=== PATIENT | female | born 1945 | race Caucasian/White ===

== ENCOUNTER 2021-05-24 17:52 | Inpatient (IN) | payer OTHER ==
--- NOTE | 2021-05-24 19:11 | RAD REPORT ---
EXAM DESCRIPTION: CT - Head C Spine Mpr Wo Con - 05/24/2021 6:52 pm CLINICAL HISTORY: Head and neck injury status post fall. Head and neck pain COMPARISON: December 2020 MRI TECHNIQUE: Computed axial tomography of the head and cervical spine was obtained. Sagittal and coronal reconstruction was performed. All CT scans are performed using dose optimization technique as appropriate and may include automated exposure control or mA/KV adjustment according to patient size. FINDINGS: An intracranial bleed is not seen. The ventricles are normal in caliber. An extra-axial fl uid collection is not noted. Mild to moderate low-density areas within periventricular, deep and subcortical white matter likely i schemic changes secondary to small vessel disease Chronic opacification right mastoids may indicate mastoiditis A cervical fracture is not visualized. No dislocation is noted. Spondylosis involves the cervical spi ne IMPRESSION: No acute intracranial abnormality is seen. A cervical fracture is not visualized. If the patient continues to have symptoms to suggest intracra nial /spinal cord pathology then MRI would be recommended
--- NOTE | 2021-05-24 19:15 | RAD REPORT ---
EXAM DESCRIPTION: Maribeth Single View05/24/2021 6:44 pm CLINICAL HISTORY: Chest pain COMPARISON: 2019 FINDINGS: The lungs appear clear of acute infiltrate. The heart is normal size IMPRESSION: No acute abnormalities displayed
[2021-05-24 19:16] LABS: Absolute Lymphocytes (CBC) 1.7 K/uL (0.7-4.9); Basophils % 0.6 % (0-1.3); Hematocrit 34.4 % (36.0-45.0); Lymphocytes % 10.9 % (15.3-44.8); RBC Red Blood Cell Count 3.59 M/uL (3.86-4.86)
[2021-05-24 19:17] LABS: Protime INR 0.99
[2021-05-24 19:51] LABS: ALT/SGPT 16 U/L (12-78); Albumin 3.4 g/dL (3.4-5.0); Alkaline Phosphatase 59 U/L (45-117); BUN Blood Urea Nitrogen 16 mg/dL (7-18); Bicarbonate 24 mmol/L (21-32); Bilirubin Direct < 0.1 mg/dL (0-0.2); Bilirubin Total 0.6 mg/dL (0.2-1.0); Glucose Level 144 mg/dL (74-106); NT PRO-BNP 1386 pg/mL (<450); Protein, Total 7.5 g/dL (6.4-8.2); Sodium Level 135 mmol/L (136-145); Troponin (Emerg Dept Use Only) < 0.02 ng/mL (0.0-0.045)
[2021-05-24 19:52] LABS: AST/SGOT 24 U/L (15-37); Magnesium 1.7 mg/dL (1.8-2.4); Potassium 4.5 mmol/L (3.5-5.1)
[2021-05-24 20:21] LABS: Urine Blood 3+ (Negative); Urine Glucose Negative (Negative); Urine Protein 1+ (Negative); Urine pH 5.5 (5.0-7.0)
[2021-05-24] MEDS ORDERED: NA CHLORIDE 0.9% 500 ML ONE (20:32)
--- NOTE | 2021-05-24 20:54 | ER ---
Nurse's Notes [facility] Name: Barbara Long Age: 75 yrs Sex: Female : 1945 Arrival Date: 05/24/2021 Time: 17:53 Bed 7 Private MD: Diagnosis: UTI/ Urinary tract infection, site not specified;Syncope Near;Weakness Presentation: 05/24 18:06 Chief complaint: Patient's son or daughter states: Pt fell outside about an hour ago vg1 and neighbors helped pt back into home. Son stated neighbors stated Pt stated was confused as to why was on the ground. Pt states "I remember, I was picking up sticks, felt dizzy and blacked out and fell" Pt confirms of hitting head but unsure of duration of LOC. Pt son states pt stated fell last night in living room around 2200 and was able to get up off floor today around 1000. Pt denies headache, blurred vision, dizziness or nausea at this time. FSBG 143. Coronavirus screen: Vaccine status: Patient reports receiving the 2nd dose of the covid vaccine. Ebola Screen: Patient negative for fever greater than or equal to 101.5 degrees Fahrenheit, and additional compatible Ebola Virus Disease symptoms. Initial Sepsis Screen: Does the patient meet any 2 criteria? No. Patient's initial sepsis screen is negative. Does the patient have a suspected source of infection? No. Patient's initial sepsis screen is negative. Risk Assessment: Do you want to hurt yourself or someone else? Patient reports no desire to harm self or others. Onset of symptoms was May 24, 2021. 18:06 Method Of Arrival: Wheelchair vg1 18:06 Acuity: SONI 3 vg1 Triage Assessment: 18:10 General: Appears in no apparent distress. comfortable, Behavior is calm, cooperative. vg1 Pain: Denies pain. Neuro: Level of Consciousness is awake, alert, obeys commands, Oriented to person, place, time, situation. Historical: - Allergies: 18:10 No Known Allergies; vg1 - Home Meds: 18:10 tamoxifen oral [Active]; Metformin Oral [Active]; nadolol oral [Active]; Vasotec Oral vg1 [Active]; amlodipine oral [Active]; pantoprazole oral [Active]; atorvastatin oral [Active]; - PMHx: 18:10 Hypertensive disorder; Diabetes mellitus; vg1 - Immunization history:: Adult Immunizations up to date, Client reports receiving the 2nd dose of the Covid vaccine. - Social history:: Smoking status: Patient reports the use of cigarette tobacco products, denies chronic smoking, but will smoke occasionally. Screenin:33 Abuse screen: Denies threats or abuse. Denies injuries from another. Nutritional ld1 screening: No deficits noted. Tuberculosis screening: No symptoms or risk factors identified. Fall Risk Fall in past 12 months (25 points). Gait- Weak (10 pts.). Mental Status- Oriented to own ability (0 pts). Total Pacheco Fall Scale indicates Low Risk Score (25-44 pts). Fall prevention measures have been instituted. Side Rails Up X 2 Placed close to Nursing Station Frequent Obs/Assesments occuring Family Present and informed to notify staff if they need to leave bedside. Assessment: 18:20 General: Appears in no apparent distress. comfortable, Behavior is calm, cooperative, ld1 appropriate for age, drowsy. Pain: Denies pain. Neuro: Level of Consciousness is awake, alert, obeys commands, Oriented to person, place, time, situation. Cardiovascular: Capillary refill < 3 seconds Patient's skin is warm and dry. Rhythm is regular. Respiratory: Airway is patent Respiratory effort is even, unlabored, Respiratory pattern is regular, symmetrical. 18:20 Neuro: Reports dizziness, since X 3 days. GI: Abdomen is flat, non-distended. : No ld1 signs and/or symptoms were reported regarding the genitourinary system. EENT: No signs and/or symptoms were reported regarding the EENT system. Derm: No signs and/or symptoms reported regarding the dermatologic system. Musculoskeletal: No signs and/or symptoms reported regarding the musculoskeletal system. Vital Signs: 18:06 BP 120 / 58; Pulse 68; Resp 16; Temp 97.2; Pulse Ox 100% ; Weight 45.36 kg; Height 5 vg1 ft. 0 in. (152.40 cm); Pain 0/10; 18:29 BP 129 / 57 LA Supine (auto/); Pulse 63 LA; ld1 18:31 BP 128 / 76 LA Sitting (auto/); Pulse 68 LA; ld1 18:33 BP 121 / 66 LA Standing (auto/); Pulse 70 LA; ld1 18:33 BP 121 / 66; Pulse 66; Resp 18; Pulse Ox 100% on R/A; Pain 0/10; ld1 18:06 Body Mass Index 19.53 (45.36 kg, 152.40 cm) vg1 ED Course: 17:53 Patient arrived in ED. rg4 18:10 Triage completed. vg1 18:10 Arm band placed on. vg1 18:16 Rashawn Dinh PA is PHCP. cp 18:16 Chato Roldan MD is Attending Physician. cp 18:33 Patient has correct armband on for positive identification. Placed in gown. Bed in low ld1 position. Call light in reach. Side rails up X2. cafeteria monitor on. Pulse ox on. NIBP on. Door closed. Noise minimized. Warm blanket given. 18:33 No provider procedures requiring assistance completed. Inserted saline lock: 20 gauge ld1 in right forearm, using aseptic technique. Blood collected. 18:44 XRAY Chest (1 view) In Process Unspecified. EDMS 18:53 CT Head C Spine In Process Unspecified. EDMS 20:37 LAB Add On Sent. wg 20:52 Nilo Roque DO is Hospitalizing Provider. cp 20:53 Blood Culture Adult (2) Sent. wg 21:34 Radha Valenzuela, RN is Primary Nurse. ea 05/25 05:30 Patient maintains SpO2 saturation greater than 95% on room air. wg 05:42 Procalcitonin Sent. wg 05:42 Lactate Sent. wg 05:43 Urine Culture Sent. wg 05:43 COVID-19 : Document "Date of Symptom Onset" if Symptomatic. Sent. wg Administered Medications: 05/24 20:09 Drug: NS 0.9% 500 ml Route: IV; Rate: bolus; Infused Over: 30 mins; Site: right wrist; ea 20:53 Drug: Rocephin (cefTRIAXone) 1 grams Route: IV; Rate: calculated rate; Infused Over: 5 wg mins; Site: right antecubital; 22:00 Follow up: IV Status: Completed infusion ea 21:30 Drug: Magnesium Sulfate 1 grams Route: IVPB; Infused Over: 1 hrs; Site: right ea antecubital; Outcome: 20:53 Decision to Hospitalize by Provider. cp 05/25 11:44 Admitted to Med/surg accompanied by tech, family with patient, via wheelchair, room [place] [id number], with chart, Report called to ROSA MARIA Sheehan Condition: stable Discharge instructions given to patient, Instructed on the need for admit, Demonstrated understanding of instructions. 11:45 Patient left the ED. jl7 Signatures: Dispatcher [employer] EDMS Rashawn Dinh PA PA cp Garcia, Rubi rg4 Gi Pelletier RN RN jl7 Radha Valenzuela RN RN ea Garcia, Victoria, RN RN vg1 Prabha Stoddard RN RN ld1 Mc Tate RN wg Corrections: (The following items were deleted from the chart) 05/24 18:14 18:06 Chief complaint: Patient's son or daughter states: Pt fell outside about an hour vg1 ago and neighbors helped pt back into home. Son stated neighbors stated Pt stated was confused as to why was on the ground. Pt states "I remember, I was picking up sticks, felt dizzy and blacked out and fell" Pt confirms of hitting head but unsure of duration of LOC. Pt son states pt stated fell last night in living room around 2200 and was able to get up off floor today around 1000. vg1
--- NOTE | 2021-05-24 20:54 | EDPHYS ---
Physician Documentation [facility] Name: Barbara Long Age: 75 yrs Sex: Female : 1945 Arrival Date: 05/24/2021 Time: 17:53 Bed 7 Private MD: ED Physician Chato Roldan HPI: 05/24 18:35 This 75 yrs old Female presents to ER via Wheelchair with complaints of Fall cp Injury, Dizziness, Confusion. 18:35 Details of fall: The patient fell from an upright position, while walking. Onset: The cp symptoms/episode began/occurred today. Associated injuries: The patient sustained no obvious injury. 18:35 Patient reports she bent over and lost consciousness. Patient reports general weakness. cp Historical: - Allergies: 18:10 No Known Allergies; vg1 - Home Meds: 18:10 tamoxifen oral [Active]; Metformin Oral [Active]; nadolol oral [Active]; Vasotec Oral vg1 [Active]; amlodipine oral [Active]; pantoprazole oral [Active]; atorvastatin oral [Active]; - PMHx: 18:10 Hypertensive disorder; Diabetes mellitus; vg1 - Immunization history:: Adult Immunizations up to date, Client reports receiving the 2nd dose of the Covid vaccine. - Social history:: Smoking status: Patient reports the use of cigarette tobacco products, denies chronic smoking, but will smoke occasionally. ROS: 18:40 Constitutional: Negative for body aches, chills, fever, poor PO intake. cp 18:40 Cardiovascular: Negative for chest pain, edema, palpitations. cp 18:40 Respiratory: Negative for cough, shortness of breath, wheezing. 18:40 Neuro: Positive for dizziness, syncope, weakness. Exam: 18:45 Constitutional: The patient appears in no acute distress, alert, awake, cp non-diaphoretic, non-toxic, well developed, well nourished. 18:45 Head/Face: Normocephalic, atraumatic. cp 18:45 Eyes: Periorbital structures: appear normal, Conjunctiva: normal, no exudate, no injection, Sclera: no appreciated abnormality, Lids and lashes: appear normal, bilaterally. 18:45 ENT: External ear(s): are unremarkable, Nose: is normal, Mouth: Lips: dry, Oral mucosa: moist, Posterior pharynx: Airway: no evidence of obstruction, patent. 18:45 Neck: ROM/movement: is normal, is supple, no meningismus, no nuchal rigidity. 18:45 Chest/axilla: Inspection: normal, Palpation: is normal, no crepitus, no tenderness. 18:45 Cardiovascular: Rate: normal, Rhythm: regular, Edema: is not appreciated, JVD: is not appreciated. 18:45 Respiratory: the patient does not display signs of respiratory distress, Respirations: normal, no use of accessory muscles, no retractions, labored breathing, is not present, Breath sounds: are clear throughout, no decreased breath sounds, no stridor, no wheezing. 18:45 Abdomen/GI: Inspection: abdomen appears normal, Palpation: abdomen is soft and non-tender, in all quadrants. 18:45 Skin: cellulitis, is not appreciated, no rash present. 18:45 Neuro: Orientation: to person, place \\T\\ time. Mentation: able to follow commands, slow to respond, Cerebellar function: is grossly normal, Motor: moves all fours, strength is normal, Sensation: is normal. 20:45 ECG was reviewed by the Attending Physician. Vital Signs: 18:06 BP 120 / 58; Pulse 68; Resp 16; Temp 97.2; Pulse Ox 100% ; Weight 45.36 kg; Height 5 vg1 ft. 0 in. (152.40 cm); Pain 0/10; 18:29 BP 129 / 57 LA Supine (auto/); Pulse 63 LA; ld1 18:31 BP 128 / 76 LA Sitting (auto/); Pulse 68 LA; ld1 18:33 BP 121 / 66 LA Standing (auto/); Pulse 70 LA; ld1 18:33 BP 121 / 66; Pulse 66; Resp 18; Pulse Ox 100% on R/A; Pain 0/10; ld1 18:06 Body Mass Index 19.53 (45.36 kg, 152.40 cm) vg1 MDM: 18:27 Patient medically screened. cp 20:45 Data reviewed: vital signs, nurses notes, lab test result(s), EKG, radiologic studies, cp CT scan, plain films. 20:45 Test interpretation: by ED physician or midlevel provider: ECG, plain radiologic cp studies. Counseling: I had a detailed discussion with the patient and/or guardian regarding: the historical points, exam findings, and any diagnostic results supporting the discharge/admit diagnosis, lab results, radiology results, the need for further work-up and treatment in the hospital. 20:55 Physician consultation: Bassam Wall was contacted at 20:50, regarding admission, to the telemetry unit. patient's condition. 05/24 18:17 Order name: Glucose, Ancillary Testing; Complete Time: 18:17 EDMD 05/24 18:30 Order name: Basic Metabolic Panel; Complete Time: 19:56 cp 05/24 20:34 Interpretation: Normal except: NA 135; GLUC 144; GFR 62. 05/24 18:30 Order name: CBC with Diff; Complete Time: 19:46 05/24 19:46 Interpretation: Normal except: WBC 15.70; RBC 3.59; HGB 11.7; HCT 34.4; MABEL% 77.6; LYM% cp 10.9; NEUT A 12.2; MNA 1.6. 05/24 18:30 Order name: LFT's; Complete Time: 19:56 05/24 18:30 Order name: Magnesium; Complete Time: 19:56 05/24 18:30 Order name: NT PRO-BNP; Complete Time: 19:56 05/24 18:30 Order name: PT-INR; Complete Time: 19:46 05/24 18:30 Order name: Troponin (emerg Dept Use Only); Complete Time: 19:56 05/24 18:30 Order name: Urine Microscopic Only; Complete Time: 21:16 05/24 21:16 Interpretation: Normal except: UWBC 5-10; URBC 5-10; UBACT LOADED; SQEPI 5-10. 05/24 19:49 Order name: Procalcitonin 05/24 19:49 Order name: Lactate 05/24 19:49 Order name: Blood Culture Adult (2) 05/24 19:49 Order name: Procalcitonin [facility] 05/24 19:49 Order name: Lactate; Complete Time: 21:16 EDMD 05/24 19:49 Order name: Blood Culture [facility] 05/24 20:21 Order name: Urine Dipstick-Ancillary; Complete Time: 20:33 EDMD 05/24 20:33 Interpretation: Normal except: UKET Trace; UBLD 3+; UPROT 1+; U NIT Positive; UESTR cp Trace. 05/24 20:35 Order name: CK cp 05/24 20:35 Order name: LAB Add On cp 05/24 21:13 Order name: COVID-19 : Document "Date of Symptom Onset" if Symptomatic. la1 05/24 21:13 Order name: Urine Culture EDMS 05/25 02:09 Order name: Troponin I EDMS 05/25 02:27 Order name: Procalcitonin EDMS 05/25 03:43 Order name: SARS-COV-2 RT PCR EDMS 05/25 06:48 Order name: CBC with Automated Diff EDMS 05/25 07:09 Order name: Troponin I EDMS 05/25 07:12 Order name: Comprehensive Metabolic Panel EDMS 05/25 07:12 Order name: Creatine Phosphokinase EDMS 05/25 07:12 Order name: Lipid Profile EDMS 05/25 07:12 Order name: T4 Free EDMS 05/25 07:12 Order name: Thyroid Stimulating Hormone EDMS 05/24 18:30 Order name: Orthostatics; Complete Time: 18:41 cp 05/24 18:30 Order name: XRAY Chest (1 view); Complete Time: 19:46 cp 05/24 18:30 Order name: EKG; Complete Time: 18:31 cp 05/24 18:30 Order name: Cardiac monitoring; Complete Time: 18:40 cp 05/24 18:30 Order name: EKG - Nurse/Tech; Complete Time: 21:35 cp 05/24 18:30 Order name: IV Saline Lock; Complete Time: 18:40 cp 05/24 18:30 Order name: Labs collected and sent; Complete Time: 18:40 cp 05/24 18:30 Order name: O2 Per Protocol; Complete Time: 18:40 cp 05/24 18:30 Order name: O2 Sat Monitoring; Complete Time: 18:41 cp 05/24 18:30 Order name: Urine Dipstick-Ancillary (obtain specimen); Complete Time: 18:40 cp 05/24 18:30 Order name: CT Head C Spine; Complete Time: 19:46 cp 05/25 07:16 Order name: RAD EDMS 05/25 07:25 Order name: US EDMS EC:45 Rate is 67 beats/min. Rhythm is regular. MO interval is normal. QRS interval is normal. cp QT interval is normal. Interpreted by me. Reviewed by me. Administered Medications: 20:09 Drug: NS 0.9% 500 ml Route: IV; Rate: bolus; Infused Over: 30 mins; Site: right wrist; ea 20:53 Drug: Rocephin (cefTRIAXone) 1 grams Route: IV; Rate: calculated rate; Infused Over: 5 wg mins; Site: right antecubital; 22:00 Follow up: IV Status: Completed infusion ea 21:30 Drug: Magnesium Sulfate 1 grams Route: IVPB; Infused Over: 1 hrs; Site: right ea antecubital; Disposition: 21:00 Chart complete. cp 05/25 12:11 Co-signature as Attending Physician, Chato Roldan MD I agree with the assessment and rn plan of care. Attestation: The patient's history, exam findings, diagnostics, and a summary of any interventions or procedures was reviewed in detail with Rashawn REYES. Disposition Summary: 05/24/21 20:53 Hospitalization Ordered Hospitalization Status: Inpatient Admission cp Provider: Nilo Roque cp Condition: Stable cp Problem: new cp Symptoms: have improved cp Bed/Room Type: Standard cp Location: Telemetry/MedSurg (Inpatient)(05/25/21 11:16) eb Room Assignment: 424(05/25/21 11:16) eb Diagnosis - UTI/ Urinary tract infection, site not specified cp - Syncope Near cp - Weakness cp Forms: - Medication Reconciliation Form cp - SBAR form cp Signatures: Dispatcher [employer] EDMS Chato Roldan MD MD rn Attema, Lee, FRAME OPERATOR-C FRAME OPERATOR-[facility] Stefany Ba RN RN tl1 Rashawn Dinh PA PA cp Radha Valenzuela RN RN Katiuska Ronquillo Victoria RN RN vg1 Mc Tate RN wg Corrections: (The following items were deleted from the chart) 03:56 05/24 20:53 Telemetry/MedSurg (Inpatient) cp tl1 05/25 03:56 05/24 20:53 cp tl1 05/25 05:43 05/24 19:49 Green ordered. cp wg 05/25 11:16 03:56 [facility] ER HOLD tl1 eb 11:16 03:56 ERHOLD- tl1 eb
[2021-05-24] MEDS ORDERED: CEFTRIAXONE 1000 MG/VIAL ONE (21:04)
[2021-05-24 21:13] LABS: Urine Bacteria LOADED /HPF (<20); Urine Mucus 1+ /HPF (NONE SEEN)
--- NOTE | 2021-05-24 21:17 | P.HP ---
Certification for Inpatient Patient admitted to: Inpatient With expected LOS: >2 Midnights Patient will require the following post-hospital care: None Practitioner: I am a practitioner with admitting privileges, knowledge of patient current condition, hospital course, and medical plan of care. Services: Services provided to patient in accordance with Admission requirements found in Title 42 Section 412.3 of the Code of Federal Regulations Patient History Date of Service: 05/24/21 Primary Care Provider: Abiel Sorto Dr. Reason for admission: Syncope, UTI History of Present Illness: 75-year-old female with history of diabetes most type II, hypertension, hyperlipidemia, breast cancer presents emergency department for s yncope, weakness. Patient reports that she fell in her home last night around 2200 for unknown reason, cannot remember event surrounding fall but remained on the floor until 10:00 this morning. Patient was then working outside picking up sticks this evening when she had some dizziness lost her balance and passed out. Patient family reports that neighbors found her and helped her up but when she awoke she was confused. Patient was brought into the emergency department for evaluation. Patient was evaluated labs are significant for white blood cell count 15.7 hemoglobin 9.7 medical 34.4 sodium 135 GFR 62 glucose 144 BNP 1386 urinalysis nitrate +3+ blood trace leukoesterase microscopic analysis pending. Orthostatic vital signs negative, ED prior wishes to admit for further evaluation and management of syncope, UTI, weakness. - Past Medical/Surgical History Diabetic: Yes -: Diabetes type 2 -: Hypertension -: Hyperlipidemia -: Breast cancer -: Hysterectomy Psychosocial/ Personal History: Patient lives at home, alone - Family History Mother -: Cancer Sister -: Cancer - Social History Smoking Status: Current every day smoker Counseled patient to stop smoking for: less than 10 minutes Smoking therapy provided: No (Patient declined) Alcohol use: No CD- Drugs: No Caffeine use: No Place of Residence: Home Review of Systems 10-point ROS is otherwise unremarkable General: Chills, Weakness, Malaise Cardiovascular: Other (Syncope) Physical Examination - Physical Exam General: Alert, In no apparent distress, Oriented x2 HEENT: Atraumatic, PERRLA, Mucous membr. moist/pink, EOMI, Sclerae nonicteric Neck: Supple, 2+ carotid pulse no bruit, No LAD, Without JVD or thyroid abnormality Respiratory: Clear to auscultation bilaterally, Normal air movement Cardiovascular: Regular rate/rhythm, Normal S1 S2 Gastrointestinal: Normal bowel sounds, No tenderness Musculoskeletal: No tenderness Integumentary: No rashes Neurological: Normal speech, Normal strength at 5/5 x4 extr, Normal tone, Normal affect - Studies Laboratory Data (last 24 hrs) 05/24/21 18:30: PT 11.4, INR 0.99 05/24/21 18:30: WBC 15.70 H, Hgb 11.7 L, Hct 34.4 L, Plt Count 229 05/24/21 18:30: Sodium 135 L, Potassium 4.5, BUN 16, Creatinine 0.89, Glucose 144 H, Magnesium 1.7 L, Total Bilirubin 0.6, AST 24, ALT 16, Alkaline Phosphatase 59 Assessment and Plan - Plan Assessment: Dizziness, weakness, syncope, leukocytosis likely secondary to urinary tract infection Diabetes mellitus type 2 Hypertension Hyperlipidemia Breast cancer Plan: Dizziness, weakness, syncope, leukocytosis likely secondary to urinary tract infection: Blood and urine cultures obtained continue with Rocephin at this time. Monitor on telemetry obtain echocardiogram/carotid ultrasound. Physical therapy consulted. Continue with IV fluids overnight anticipate clinical improvement on course next 24 to 48 hours. Diabetes mellitus type 2: A [facility] Accu-Chek, sliding scale insulin Hypertension: Continue home medications Hyperlipidemia:Continue home medications Breast cancer:Continue home medications DVT PPX: Lovenox Code status: Full code Discharge Plan: Home Plan to discharge in: 48 Hours - Advance Directives Does patient have a Living Will: No Does patient have a Durable POA for Healthcare: No - Code Status/Comfort Care Code Status Assessed: Yes (Full code) Critical Care: No Time Spent Managing Pts Care (In Minutes): 55
[2021-05-24] MEDS ORDERED: MAGNESIUM SULFATE 1 gm IVPB 1 GM/100 ML BAG IV ONE (21:50)
[2021-05-25] MEDS: NA CHLORIDE 0.9% 1,000 ML IV SCH ×2 (00:19→10:19)
[2021-05-25] MEDS ORDERED: ONDANSETRON 4 MG/2 ML VIAL IV PRN (00:19)
[2021-05-25 04:44] VITALS: BMI 19.5
[2021-05-25] MEDS ORDERED: NA CHLORIDE 0.9% 1,000 ML ONE ×3 (05:14→22:43)
[2021-05-25 06:42] LABS: Absolute Lymphocytes (CBC) 1.6 K/uL (0.7-4.9); Basophils % 0.4 % (0-1.3); Hematocrit 32.5 % (36.0-45.0); Lymphocytes % 18.2 % (15.3-44.8); MPV 8.5 fL (7.6-11.3); RBC Red Blood Cell Count 3.38 M/uL (3.86-4.86)
--- NOTE | 2021-05-25 06:47 | P.PN ---
Subjective Date of Service: 05/25/21 Primary Care Provider: Abiel Sorto Dr. Chief Complaint: Syncope, UTI Subjective: Improving Physical Examination - Vital Signs Blood Pressure: 122/67 Pulse: 60 Respirations: 17 Pulse Ox (%): 99 - Studies Laboratory Data (last 24 hrs) 05/24/21 18:30: PT 11.4, INR 0.99 05/24/21 18:30: WBC 15.70 H, Hgb 11.7 L, Hct 34.4 L, Plt Count 229 05/24/21 18:30: Sodium 135 L, Potassium 4.5, BUN 16, Creatinine 0.89, Glucose 144 H, Magnesium 1.7 L, Total Bilirubin 0.6, AST 24, ALT 16, Alkaline Phosphatase 59 Assessment & Plan Discharge Plan: Home Physician Review Additional Text: COVID: Negative CT head: COMPARISON: December 2020 MRI TECHNIQUE: Computed axial tomography of the head and cervical spine was obtained. Sagittal and coronal reconstruction was performed. All CT scans are performed using dose optimization technique as appropriate and may include automated exposure control or mA/KV adjustment according to patient size. FINDINGS: An intracranial bleed is not seen. The ventricles are normal in caliber. An extra-axial fluid collection is not noted. Mild to moderate low-density areas within periventricular, deep and subcortical white matter likely ischemic changes secondary to small vessel disease Chronic opacification right mastoids may indicate mastoiditis A cervical fracture is not visualized. No dislocation is noted. Spondylosis involves the cervical spine IMPRESSION: No acute intracranial abnormality is seen. A cervical fracture is not visualized. CXR: COMPARISON: 2019 FINDINGS: The lungs appear clear of acute infiltrate. The heart is normal size IMPRESSION: No acute abnormalities displayed ECHO: MEASUREMENTS (cm) DIASTOLIC (NORMALS) SYSTOLIC (NORMALS) IVSd 0.9 (0.6-1.2) LA Diam 2.5 (1.9-4.0) LVEF 64% LVIDd 3.8 (3.5-5.7) LVIDs 2.5 (2.0-3.5) %FS 34% LVPWd 1.0 (0.6-1.2) Ao Diam 2.2 (2.0-3.7) 2 DIMENSIONAL ASSESSMENT: RIGHT ATRIUM: NORMAL LEFT ATRIUM: NORMAL RIGHT VENTRICLE: NORMAL LEFT VENTRICLE: NORMAL TRICUSPID VALVE: NORMAL MITRAL VALVE: NORMAL PULMONIC VALVE: NORMAL AORTIC VALVE: NORMAL PERICARDIAL EFFUSION: NONE AORTIC ROOT: NORMAL LEFT VENTRICULAR WALL MOTION: NORMAL DOPPLER/COLOR FLOW: NORMAL COMMENTS: NORMAL 2D ECHOCARDIOGRAM WITH DOPPLER. NO WALL MOTION ABNORMALITY. NO EFFUSION. Carotid doppler: COMPARISON: Head C Spine Mpr Wo Con dated 05/24/2021 TECHNIQUE: Real-time sonographic evaluation of both carotid systems was performed. Doppler interrogation was performed with waveform tracing bilaterally. FINDINGS: Normal high resistance waveforms are noted in both external carotid arteries. The common carotid arteries and internal carotid arteries show normal low resistance waveforms Soft and hard plaque noted at the proximal ICAs. Peak systolic and end diastolic velocity values and the ICA/CCA ratios are in the non-hemodynamically significant range. Mild stenosis of the proximal left external carotid artery. Antegrade flow seen in both vertebral arteries. IMPRESSION: Atherosclerotic disease without hemodynamically significant stenosis involving the common or internal carotid arteries. Mild left ECA stenosis. Physical exam: General: Alert, In no apparent distress, Oriented x2 HEENT: Atraumatic, PERRLA, Mucous membr. moist/pink, EOMI, Sclerae nonicteric Neck: Supple, 2+ carotid pulse no bruit, No LAD, Without JVD or thyroid abnormality Respiratory: Clear to auscultation bilaterally, Normal air movement Cardiovascular: Regular rate/rhythm, Normal S1 S2 Gastrointestinal: Normal bowel sounds, No tenderness Musculoskeletal: No tenderness Integumentary: No rashes Neurological: Normal speech, Normal strength at 5/5 x4 extr, Normal tone, Normal affect Impression: Dizziness, weakness, syncope, leukocytosis likely secondary to urinary tract infection Diabetes mellitus type 2 Hypertension Hyperlipidemia Breast cancer Plan: Dizziness, weakness, syncope, leukocytosis likely secondary to urinary tract infection: Continue IV antibiotic therapy. Blood and urine cultures obtained. Anticipate likely discharge in the next 48 hours. Await physical therapy assess ambulation. Diabetes mellitus type 2: Continue Accu-Cheks and sliding scale. Hold Metformin. Hold Januvia. Hypertension: Continue lisinopril. Hold Norvasc/JALEEL inhibitor and nadolol Hyperlipidemia: Continue Lipitor Breast cancer: Continue tamoxifen DVT PPX: Lovenox Code status: Full code Discharge Plan: Home Time Spent Managing Pts Care (In Minutes): 55
[2021-05-25 07:08] LABS: Bilirubin Total 0.4 mg/dL (0.2-1.0); Potassium 3.9 mmol/L (3.5-5.1); Protein, Total 6.8 g/dL (6.4-8.2); Thyroid Stimulating Hormone 1.83 uIU/mL (0.360-3.740)
--- NOTE | 2021-05-25 07:15 | RAD REPORT ---
EXAM DESCRIPTION: RAD - Chest Single View - 05/25/2021 6:42 am CLINICAL HISTORY: R/O pneumonia COMPARISON: Chest Single View dated 05/24/2021; Chest Pa And Lat (2 Views) dated 07/31/2020; CHEST PA AND LAT 2 VIEW dated 08/04/2009; CHEST PA AND LAT 2 VIEW dated 01/26/2008 FINDINGS: Lines: None. Lungs: There is some increased prominence of some of the interstitial markings bilaterally. This is f airly diffuse. Pleural: No significant pleural effusions or pneumothorax. Cardiac: The heart size is within normal limits. Bones: No acute fractures. Other: Surgical clips overlying the left breast. IMPRESSION: Mild diffuse increased lung markings could reflect a mild infectious or inflammatory pro cess.
--- NOTE | 2021-05-25 07:25 | RAD REPORT ---
EXAM DESCRIPTION: US - CP - 05/25/2021 1:26 am CLINICAL HISTORY: syncope COMPARISON: Head C Spine Mpr Wo Con dated 05/24/2021 TECHNIQUE: Real-time sonographic evaluation of both carotid systems was performed. Doppler interroga tion was performed with waveform tracing bilaterally. FINDINGS: Normal high resistance waveforms are noted in both external carotid arteries. The common c arotid arteries and internal carotid arteries show normal low resistance waveforms. Soft and hard plaque noted at the proximal ICAs. Peak systolic and end diastolic velocity values and the ICA/CCA ratios are in the non-hemodynamically significant range. Mild stenosis of the proximal le ft external carotid artery. Antegrade flow seen in both vertebral arteries. IMPRESSION: Atherosclerotic disease without hemodynamically significant stenosis involving the commo n or internal carotid arteries. Mild left ECA stenosis.
[2021-05-25] MEDS ORDERED: KCL 20 MEQ/100 mL IVPB 20 MEQ/100 ML BAG IV SCH (08:00)
[2021-05-25] MEDS ORDERED: INFLUENZA VACCINE (for 6+ mo) 0.5 ML DOSE IMVAC ONE (08:00)
[2021-05-25] MEDS ORDERED: PNEUMOCOCCAL VACCINE 0.5 ML IMVAC ONE (08:00)
[2021-05-25] MEDS ORDERED: POTASSIUM CL SA 10 MEQ TAB PO ONE ×2 (08:46→09:50)
[2021-05-25] MEDS ORDERED: ENOXAPARIN 40 MG/0.4 ML SQ ONE (08:46)
[2021-05-25] MEDS: ENOXAPARIN 40 MG/0.4 ML SQ SCH (09:00)
--- NOTE | 2021-05-25 10:41 | EKG ---
Test Date: 2021-05-24 Test Time: 20:38:43 Physical Sciences Professor: MECHELLE MEASUREMENT RESULTS: Intervals: Rate: 68 AK: 122 QRSD: 76 QT: 436 QTc: 463 [place]: P: 61 AK: 122 QRS: 65 T: 60 INTERPRETIVE STATEMENTS: Normal sinus rhythm ST elevation, consider inferior injury or acute infarct ACUTE CT / STEMI Consider right ventricular involvement in acute inferior infarct Abnormal ECG Compared to ECG 01/26/2008 05:52:27 ST (T wave) deviation now present Myocardial infarct finding now present Myocardial infarct finding now present Sinus bradycardia no longer present Electronically Signed On 05-25-21 10:39:45 CDT by Hamilton Baum
--- NOTE | 2021-05-25 11:33 | ECHO ---
HEIGHT: 5 ft 0 in WEIGHT: 100 lb 0.027 oz DATE OF STUDY: 05/25/[address]: Bassam Wall NP 2-DIMENSIONAL: YES M.MODE: YES DOPPLER: YES COLOR FLOW: YES TDS: NO PORTABLE: NO DEFINITY: NO BUBBLE STUDY: NO DIAGNOSIS: SYNCOPE CARDIAC HISTORY: CATHERIZATION: NO SURGERY: NO PROSTHETIC VALVE: NO PACEMAKER: NO MEASUREMENTS (cm) DIASTOLIC (NORMALS) SYSTOLIC (NORMALS) IVSd 0.9 (0.6-1.2) LA Diam 2.5 (1.9-4.0) LVEF 64% LVIDd 3.8 (3.5-5.7) LVIDs 2.5 (2.0-3.5) %FS 34% LVPWd 1.0 (0.6-1.2) Ao Diam 2.2 (2.0-3.7) 2 DIMENSIONAL ASSESSMENT: RIGHT ATRIUM: NORMAL LEFT ATRIUM: NORMAL RIGHT VENTRICLE: NORMAL LEFT VENTRICLE: NORMAL TRICUSPID VALVE: NORMAL MITRAL VALVE: NORMAL PULMONIC VALVE: NORMAL AORTIC VALVE: NORMAL PERICARDIAL EFFUSION: NONE AORTIC ROOT: NORMAL LEFT VENTRICULAR WALL MOTION: NORMAL DOPPLER/COLOR FLOW: NORMAL COMMENTS: NORMAL 2D ECHOCARDIOGRAM WITH DOPPLER. NO WALL MOTION ABNORMALITY. NO EFFUSION. TECHNOLOGIST: Kellie ANAYA
[2021-05-25] MEDS: VITAMIN D 1000 UNIT TAB PO SCH (17:48)
[2021-05-25] MEDS: ENALAPRIL 10 MG TAB PO SCH (20:27)
[2021-05-25] MEDS: CEFTRIAXONE 1 GM/NS 50 ML 1 GM/50 ML BAG IV SCH (20:27)
[2021-05-25] MEDS: ATORVASTATIN 40 MG TAB PO SCH (20:28)
[2021-05-26 06:03] LABS: Absolute Lymphocytes (CBC) 1.9 K/uL (0.7-4.9); Basophils % 0.8 % (0-1.3); Hematocrit 31.3 % (36.0-45.0); Lymphocytes % 26.4 % (15.3-44.8); MPV 8.3 fL (7.6-11.3); RBC Red Blood Cell Count 3.28 M/uL (3.86-4.86)
--- NOTE | 2021-05-26 06:14 | P.PN ---
Subjective Date of Service: 05/26/21 Primary Care Provider: Abiel Sorto Dr. Chief Complaint: Syncope, UTI Subjective: Improving, Doing well Physical Examination - Vital Signs Temperature: 98.0 F Blood Pressure: 152/64 Pulse: 56 Respirations: 16 Pulse Ox (%): 99 Assessment & Plan Discharge Plan: Home Plan to discharge in: 24 Hours Physician Review Additional Text: COVID: Negative CT head: COMPARISON: December 2020 MRI TECHNIQUE: Computed axial tomography of the head and cervical spine was obtained. Sagittal and coronal reconstruction was performed. All CT scans are performed using dose optimization technique as appropriate and may include automated exposure control or mA/KV adjustment according to patient size. FINDINGS: An intracranial bleed is not seen. The ventricles are normal in caliber. An extra-axial fluid collection is not noted. Mild to moderate low-density areas within periventricular, deep and subcortical white matter likely ischemic changes secondary to small vessel disease Chronic opacification right mastoids may indicate mastoiditis A cervical fracture is not visualized. No dislocation is noted. Spondylosis involves the cervical spine IMPRESSION: No acute intracranial abnormality is seen. A cervical fracture is not visualized. CXR: COMPARISON: 2019 FINDINGS: The lungs appear clear of acute infiltrate. The heart is normal size IMPRESSION: No acute abnormalities displayed ECHO: MEASUREMENTS (cm) DIASTOLIC (NORMALS) SYSTOLIC (NORMALS) IVSd 0.9 (0.6-1.2) LA Diam 2.5 (1.9-4.0) LVEF 64% LVIDd 3.8 (3.5-5.7) LVIDs 2.5 (2.0-3.5) %FS 34% LVPWd 1.0 (0.6-1.2) Ao Diam 2.2 (2.0-3.7) 2 DIMENSIONAL ASSESSMENT: RIGHT ATRIUM: NORMAL LEFT ATRIUM: NORMAL RIGHT VENTRICLE: NORMAL LEFT VENTRICLE: NORMAL TRICUSPID VALVE: NORMAL MITRAL VALVE: NORMAL PULMONIC VALVE: NORMAL AORTIC VALVE: NORMAL PERICARDIAL EFFUSION: NONE AORTIC ROOT: NORMAL LEFT VENTRICULAR WALL MOTION: NORMAL DOPPLER/COLOR FLOW: NORMAL COMMENTS: NORMAL 2D ECHOCARDIOGRAM WITH DOPPLER. NO WALL MOTION ABNORMALITY. NO EFFUSION. Carotid doppler: COMPARISON: Head C Spine Mpr Wo Con dated 05/24/2021 TECHNIQUE: Real-time sonographic evaluation of both carotid systems was performed. Doppler interrogation was performed with waveform tracing bilaterally. FINDINGS: Normal high resistance waveforms are noted in both external carotid arteries. The common carotid arteries and internal carotid arteries show normal low resistance waveforms Soft and hard plaque noted at the proximal ICAs. Peak systolic and end diastolic velocity values and the ICA/CCA ratios are in the non-hemodynamically significant range. Mild stenosis of the proximal left external carotid artery. Antegrade flow seen in both vertebral arteries. IMPRESSION: Atherosclerotic disease without hemodynamically significant stenosis involving the common or internal carotid arteries. Mild left ECA stenosis. Physical exam: General: Alert, In no apparent distress, Oriented x2 HEENT: Neck supple Respiratory: Clear to auscultation bilaterally, Normal air movement Cardiovascular: Regular rate/rhythm, Normal S1 S2 Gastrointestinal: Normal bowel sounds, No tenderness Musculoskeletal: No tenderness Integumentary: No rashes Neurological: Normal speech, Normal strength at 5/5 x4 extr, Normal tone, Normal affect Impression: Dizziness, weakness, syncope, leukocytosis likely secondary to urinary tract infection Diabetes mellitus type 2 Hypertension Hyperlipidemia Breast cancer Plan: Dizziness, weakness, syncope, leukocytosis likely secondary to urinary tract infection: Continue IV antibiotic therapy. Blood and urine cultures obtained. Urine culture shows gram-negative rods. Await urine culture prior to discharge. Physical therapy to assess ambulation. Likely discharge in the next 24 hours. Diabetes mellitus type 2: Continue Accu-Cheks and sliding scale. Restart Metformin. Hold Januvia. Hypertension: Continue Vasotec 10 mg 1 pill twice daily. We will add Norvasc 5 mg 1 pill twice daily. Continue to hold nadolol Hyperlipidemia: Continue Lipitor 40 mg daily Breast cancer: Continue tamoxifen DVT PPX: Lovenox Code status: Full code Discharge Plan: Home Time Spent Managing Pts Care (In Minutes): 55
[2021-05-26 06:22] LABS: Albumin 2.7 g/dL (3.4-5.0); Bilirubin Total 0.3 mg/dL (0.2-1.0); Potassium 4.4 mmol/L (3.5-5.1); Protein, Total 6.3 g/dL (6.4-8.2)
[2021-05-26] MEDS ORDERED: HOME MED 1 EA UNK (Cholecalciferol (Vitamin D3) [Vitamin D3] 50 MCG Capsule) PO SCH (09:00)
[2021-05-26] MEDS: ENOXAPARIN 40 MG/0.4 ML SQ SCH (09:22)
[2021-05-26] MEDS: VITAMIN D 1000 UNIT TAB PO SCH (09:23)
[2021-05-26] MEDS: ENALAPRIL 10 MG TAB PO SCH ×2 (09:23→20:55)
--- NOTE | 2021-05-26 11:16 | EKG ---
Test Date: 2021-05-24 Test Time: 20:46:45 Trailer Assembler: MECHELLE MEASUREMENT RESULTS: Intervals: Rate: 68 NE: 142 QRSD: 70 QT: 382 QTc: 406 [place]: P: 87 NE: 142 QRS: 68 T: 56 INTERPRETIVE STATEMENTS: Normal sinus rhythm Normal ECG Compared to ECG 05/24/2021 20:40:32 ST (T wave) deviation no longer present Electronically Signed On 05-26-21 11:13:29 CDT by Hamilton Baum
--- NOTE | 2021-05-26 11:16 | EKG ---
Test Date: 2021-05-24 Test Time: 20:40:32 Schedule Analyst: MECHELLE MEASUREMENT RESULTS: Intervals: Rate: 67 ME: 150 QRSD: 56 QT: 424 QTc: 448 [place]: P: 85 ME: 150 QRS: 51 T: 35 INTERPRETIVE STATEMENTS: Normal sinus rhythm Low voltage QRS Nonspecific ST and T wave abnormality Abnormal ECG Compared to ECG 05/24/2021 20:38:43 Low QRS voltage now present Myocardial infarct finding no longer present Myocardial infarct finding no longer present ST (T wave) deviation still present Electronically Signed On 05-26-21 11:13:33 CDT by Hamilton Baum
[2021-05-26] MEDS: AMLODIPINE 5 MG TAB PO SCH ×2 (13:19→20:55)
[2021-05-26] MEDS: METFORMIN ER 500 MG TAB PO SCH (17:50)
[2021-05-26] MEDS: CEFTRIAXONE 1 GM/NS 50 ML 1 GM/50 ML BAG IV SCH (20:54)
[2021-05-26] MEDS: ATORVASTATIN 40 MG TAB PO SCH (20:55)
[2021-05-27] MEDS: METFORMIN ER 500 MG TAB PO SCH (06:06)
--- NOTE | 2021-05-27 06:21 | P.PN ---
Subjective Date of Service: 05/27/21 Primary Care Provider: Dr. Sexton Chief Complaint: Syncope, UTI Subjective: Improving Physical Examination - Vital Signs Temperature: 97.3 F Blood Pressure: 148/69 Pulse: 57 Respirations: 16 Pulse Ox (%): 95 Assessment & Plan Discharge Plan: Home Plan to discharge in: 24 Hours Physician Review Additional Text: COVID: Negative CT head: COMPARISON: December 2020 MRI TECHNIQUE: Computed axial tomography of the head and cervical spine was obtained. Sagittal and coronal reconstruction was performed. All CT scans are performed using dose optimization technique as appropriate and may include automated exposure control or mA/KV adjustment according to patient size. FINDINGS: An intracranial bleed is not seen. The ventricles are normal in caliber. An extra-axial fluid collection is not noted. Mild to moderate low-density areas within periventricular, deep and subcortical white matter likely ischemic changes secondary to small vessel disease Chronic opacification right mastoids may indicate mastoiditis A cervical fracture is not visualized. No dislocation is noted. Spondylosis involves the cervical spine IMPRESSION: No acute intracranial abnormality is seen. A cervical fracture is not visualized. CXR: COMPARISON: 2019 FINDINGS: The lungs appear clear of acute infiltrate. The heart is normal size IMPRESSION: No acute abnormalities displayed ECHO: MEASUREMENTS (cm) DIASTOLIC (NORMALS) SYSTOLIC (NORMALS) IVSd 0.9 (0.6-1.2) LA Diam 2.5 (1.9-4.0) LVEF 64% LVIDd 3.8 (3.5-5.7) LVIDs 2.5 (2.0-3.5) %FS 34% LVPWd 1.0 (0.6-1.2) Ao Diam 2.2 (2.0-3.7) 2 DIMENSIONAL ASSESSMENT: RIGHT ATRIUM: NORMAL LEFT ATRIUM: NORMAL RIGHT VENTRICLE: NORMAL LEFT VENTRICLE: NORMAL TRICUSPID VALVE: NORMAL MITRAL VALVE: NORMAL PULMONIC VALVE: NORMAL AORTIC VALVE: NORMAL PERICARDIAL EFFUSION: NONE AORTIC ROOT: NORMAL LEFT VENTRICULAR WALL MOTION: NORMAL DOPPLER/COLOR FLOW: NORMAL COMMENTS: NORMAL 2D ECHOCARDIOGRAM WITH DOPPLER. NO WALL MOTION ABNORMALITY. NO EFFUSION. Carotid doppler: COMPARISON: Head C Spine Mpr Wo Con dated 05/24/2021 TECHNIQUE: Real-time sonographic evaluation of both carotid systems was performed. Doppler interrogation was performed with waveform tracing bilaterally. FINDINGS: Normal high resistance waveforms are noted in both external carotid arteries. The common carotid arteries and internal carotid arteries show normal low resistance waveforms Soft and hard plaque noted at the proximal ICAs. Peak systolic and end diastolic velocity values and the ICA/CCA ratios are in the non-hemodynamically significant range. Mild stenosis of the proximal left external carotid artery. Antegrade flow seen in both vertebral arteries. IMPRESSION: Atherosclerotic disease without hemodynamically significant stenosis involving the common or internal carotid arteries. Mild left ECA stenosis. Physical exam: General: Alert, In no apparent distress, Oriented x2 HEENT: Neck supple Respiratory: Clear to auscultation bilaterally, Normal air movement Cardiovascular: Regular rate/rhythm, Normal S1 S2 Gastrointestinal: Normal bowel sounds, No tenderness Musculoskeletal: No tenderness Integumentary: No rashes Neurological: Normal speech, Normal strength at 5/5 x4 extr, Normal tone, Normal affect Impression: Dizziness, weakness, syncope, leukocytosis likely secondary to urinary tract infection, urine culture positive for E. coli Diabetes mellitus type 2 Hypertension Hyperlipidemia Breast cancer Plan: Dizziness, weakness, syncope, leukocytosis likely secondary to urinary tract infection, urine culture positive for E. coli: Patient doing well at this time. Urine culture positive for E. coli. Blood culture negative. Will plan for discharge today. Case discussed with son. Son reports patient will be moving in with him at home. Recommend home health with physical therapy. This can be done with the help of her PCP. Recommend follow-up with her PCP. UTI prevention provided. Diabetes mellitus type 2: Continue Accu-Cheks and sliding scale. Continue with home medication Hypertension: At discharge patient will continue with her medications Hyperlipidemia: Continue Lipitor 40 mg daily Breast cancer: Continue tamoxifen DVT PPX: Lovenox Code status: Full code Discharge Plan: Home Time Spent Managing Pts Care (In Minutes): 55
[2021-05-27 06:26] LABS: Absolute Lymphocytes (CBC) 1.7 K/uL (0.7-4.9); Hematocrit 33.3 % (36.0-45.0); Lymphocytes % 22.2 % (15.3-44.8); MPV 8.8 fL (7.6-11.3); RBC Red Blood Cell Count 3.49 M/uL (3.86-4.86)
[2021-05-27 07:00] LABS: Bilirubin Total 0.4 mg/dL (0.2-1.0); Potassium 4.2 mmol/L (3.5-5.1); Protein, Total 6.9 g/dL (6.4-8.2)
[2021-05-27 07:59] VITALS: O2SAT 100
[2021-05-27] MEDS: ENOXAPARIN 40 MG/0.4 ML SQ SCH (07:59)
[2021-05-27] MEDS: VITAMIN D 1000 UNIT TAB PO SCH (08:01)
[2021-05-27] MEDS: ENALAPRIL 10 MG TAB PO SCH (08:01)
[2021-05-27] MEDS: AMLODIPINE 5 MG TAB PO SCH (08:01)
[2021-05-27 08:57] VITALS: BP 148/69; TEMP 97.3
--- NOTE | 2021-05-27 08:58 | P.DS ---
Admission Date: 05/24/21 Discharge Date: 05/27/21 Primary Care Provider: Dr. Sexton([place]) Disposition: ROUTINE DISCHARGE Discharge Condition: GOOD Reason for Admission: Syncope, UTI Consultations: none Procedures: COVID: Negative CT head: COMPARISON: December 2020 MRI TECHNIQUE: Computed axial tomography of the head and cervical spine was obtained. Sagittal and coronal reconstruction was performed. All CT scans are performed using dose optimization technique as appropriate and may include automated exposure control or mA/KV adjustment according to patient size. FINDINGS: An intracranial bleed is not seen. The ventricles are normal in caliber. An extra-axial fluid collection is not noted. Mild to moderate low-density areas within periventricular, deep and subcortical white matter likely ischemic changes secondary to small vessel disease Chronic opacification right mastoids may indicate mastoiditis A cervical fracture is not visualized. No dislocation is noted. Spondylosis involves the cervical spine IMPRESSION: No acute intracranial abnormality is seen. A cervical fracture is not visualized. CXR: COMPARISON: 2019 FINDINGS: The lungs appear clear of acute infiltrate. The heart is normal size IMPRESSION: No acute abnormalities displayed ECHO: MEASUREMENTS (cm) DIASTOLIC (NORMALS) SYSTOLIC (NORMALS) IVSd 0.9 (0.6-1.2) LA Diam 2.5 (1.9-4.0) LVEF 64% LVIDd 3.8 (3.5-5.7) LVIDs 2.5 (2.0-3.5) %FS 34% LVPWd 1.0 (0.6-1.2) Ao Diam 2.2 (2.0-3.7) 2 DIMENSIONAL ASSESSMENT: RIGHT ATRIUM: NORMAL LEFT ATRIUM: NORMAL RIGHT VENTRICLE: NORMAL LEFT VENTRICLE: NORMAL TRICUSPID VALVE: NORMAL MITRAL VALVE: NORMAL PULMONIC VALVE: NORMAL AORTIC VALVE: NORMAL PERICARDIAL EFFUSION: NONE AORTIC ROOT: NORMAL LEFT VENTRICULAR WALL MOTION: NORMAL DOPPLER/COLOR FLOW: NORMAL COMMENTS: NORMAL 2D ECHOCARDIOGRAM WITH DOPPLER. NO WALL MOTION ABNORMALITY. NO EFFUSION. Carotid doppler: COMPARISON: Head C Spine Mpr Wo Con dated 05/24/2021 TECHNIQUE: Real-time sonographic evaluation of both carotid systems was p erformed. Doppler interrogation was performed with waveform tracing bilaterally. FINDINGS: Normal high resistance waveforms are noted in both external carotid arteries. The common carotid arteries and internal carotid arteries show normal low resistance waveforms Soft and hard plaque noted at the proximal ICAs. Peak systolic and end diastolic velocity values and the ICA/CCA ratios are in the non-hemodynamically significant range. Mild stenosis of the proximal left external carotid artery. Antegrade flow seen in both vertebral arteries. IMPRESSION: Atherosclerotic disease without hemodynamically significant stenosis involving the common or internal carotid arteries. Mild left ECA stenosis. Medical Problem List: Dizziness, weakness, syncope, leukocytosis likely secondary to urinary tract infection, urine culture positive for E. coli Diabetes mellitus type 2 Hypertension Hyperlipidemia Breast cancer Brief History of Present Illness: 75-year-old female with history of diabetes most type II, hypertension, hyperlipidemia, breast cancer presents emergency department for syncope, weakness. Patient reports that she fell in her home last night around 2200 for unknown reason, cannot remember event surrounding fall but remained on the floor until 10:00 this morning. Patient was then working outside picking up sticks this evening when she had some dizziness lost her balance and passed out. Patient family reports that neighbors found her and helped her up but when she awoke she was confused. Patient was brought into the emergency department for evaluation. Patient was evaluated labs are significant for white blood cell count 15.7 hemoglobin 9.7 medical 34.4 sodium 135 GFR 62 glucose 144 BNP 1386 urinalysis nitrate +3+ blood trace leukoesterase. Patient was admitted for UTI. Hospital Course: Patient presented with dizziness, weakness and syncope. Patient found to have a UTI. Patient admitted for treatment. Patient received IV fluids with IV antibiotic therapy. Her condition improved. Patient back to baseline. Blood cultures negative. Urine culture positive for E. coli. At discharge patient will continue with Bactrim DS 1 pill twice daily for 4 more days. UTI prevention provided. Case discussed at length with son. Son reports patient will move in with son. Son plans to arrange for caregiver services. Recommend follow-up with PCP within 1 week. Recommend home health and physical therapy. This can be done with the help of her PCP. Fall precautions in place. Patient with diabetes mellitus type 2. Blood sugars well controlled. At discharge patient will continue with her current medicationsMetformin 500 mg 1 pill twice daily and Januvia 100 mg daily. Recommend to maintain blood sugar less than 140 fasting and less than 200 after meals. Further adjustment in her medication may be required. This can be done with the help of her PCP. Recommend to recheck hemoglobin A1c every 3 months to monitor her progress. Follow-up with PCP to further address. Patient with hypertension. Patient previously on Vasotec 10 mg 1 pill twice daily, Norvasc/valsartan 10/320 mg daily, and nadolol 80 mg daily. Medications were adjusted during the course of her stay.patient was switched to Vasotec 10 mg 1 pill twice daily and Norvasc 5 mg 1 pill twice daily. Nadolol was discontinued due to low heart rate. Since the patient is taking Vasotec recommend not to take valsartan in combination. At discharge blood pressure stable. At discharge will recommend to continue Vasotec 10 mg 1 pill twice daily and Norvasc 5 mg 1 pill twice daily. Recommend to discontinue Norvasc/valsartan and nadolol. Recommend to monitor her blood pressure daily. Recommend to maintain blood pressure less than 130/80. Consider increasing Vasotec if blood pressure remains above 140/90. This can be done with the help of a PCP. Education on hypertension provided. Patient with hyperlipidemia. At discharge patient will continue with Lipitor 40 mg daily. Patient with history of breast cancer. At discharge patient will continue with tamoxifen 20 mg daily. Vital Signs/Physical Exam: Temp Pulse Resp BP Pulse Ox 97.3 F 57 16 148/69 H 95 05/27/21 08:57 05/27/21 08:57 05/27/21 08:57 05/27/21 08:57 05/27/21 08:57 General: Alert, In no apparent distress, Oriented x3, Cooperative HEENT: Atraumatic Neck: Supple Respiratory: Clear to auscultation bilaterally, Normal air movement Cardiovascular: Normal pulses, Regular rate/rhythm Gastrointestinal: Normal bowel sounds, No tenderness, No masses, No rebound, No guarding Musculoskeletal: No erythema, No tenderness, No warmth Integumentary: No tenderness/swelling Neurological: Normal speech, Normal strength at 5/5 x4 extr, Normal tone, Normal affect Laboratory Data at Discharge: WBC 7.70 K/uL (4.3-10.9) 05/27/21 05:54 Hgb 11.6 g/dL (12.0-15.0) L 05/27/21 05:54 Hct 33.3 % (36.0-45.0) L 05/27/21 05:54 Plt Count 238 K/uL (152-406) 05/27/21 05:54 PT 11.4 SECONDS (9.5-12.5) 05/24/21 18:30 INR 0.99 05/24/21 18:30 Sodium 138 mmol/L (136-145) 05/27/21 05:54 Potassium 4.2 mmol/L (3.5-5.1) 05/27/21 05:54 BUN 8 mg/dL (7-18) 05/27/21 05:54 Creatinine 0.67 mg/dL (0.55-1.3) 05/27/21 05:54 Glucose 157 mg/dL (74-106) H 05/27/21 05:54 Magnesium 1.7 mg/dL (1.8-2.4) L 05/24/21 18:30 Total Bilirubin 0.4 mg/dL (0.2-1.0) 05/27/21 05:54 AST 15 U/L (15-37) 05/27/21 05:54 ALT 19 U/L (12-78) 05/27/21 05:54 Alkaline Phosphatase 54 U/L (45-117) 05/27/21 05:54 Troponin I < 0.02 ng/mL (0.0-0.045) 05/25/21 06:13 Triglycerides 174 mg/dL (<150) H 05/25/21 06:13 Cholesterol 161 mg/dL (<200) 05/25/21 06:13 HDL Cholesterol 50 mg/dL (40-60) 05/25/21 06:13 Cholesterol/HDL Ratio 3.22 05/25/21 06:13 Home Medications: Atorvastatin Calcium [Lipitor] 40 mg PO BEDTIME 05/25/21 Cholecalciferol (Vitamin D3) [Vitamin D3] 50 mcg PO DAILY 05/25/21 Enalapril Maleate [Vasotec] 10 mg PO BID 05/25/21 Metformin ER [Glucophage ER*] 500 mg PO BID 6AM 6PM 05/25/21 Sitagliptin Phosphate [Januvia] 100 mg PO DAILY 05/25/21 Tamoxifen Citrate 20 mg PO DAILY 05/25/21 Amlodipine [Norvasc*] 5 mg PO BID #60 tab 05/27/21 Smz./Tmp. [Bactrim Ds 800 MG/160 MG*] 1 tab PO BID #8 tab 05/27/21 New Medications: Smz./Tmp. [Bactrim Ds 800 MG/160 MG*] 1 tab PO BID #8 tab Amlodipine [Norvasc*] 5 mg PO BID #60 tab Physician Discharge Instructions: Patient presented with dizziness, weakness and syncope. Patient found to have a UTI. Patient admitted for treatment. Patient received IV fluids with IV antibiotic therapy. Her condition improved. Patient back to baseline. Blood cultures negative. Urine culture positive for E. coli. At discharge patient will continue with Bactrim DS 1 pill twice daily for 4 more days. UTI preven tion provided. Case discussed at length with son. Son reports patient will move in with son. Son plans to arrange for caregiver services. Recommend follow-up with PCP within 1 week. Recommend home health and physical therapy. This can be done with the help of her PCP. Fall precautions in place. Patient with diabetes mellitus type 2. Blood sugars well controlled. At discharge patient will continue with her current medicationsMetformin 500 mg 1 pill twice daily and Januvia 100 mg daily. Recommend to maintain blood sugar less than 140 fasting and less than 200 after meals. Further adjustment in her medication may be required. This can be done with the help of her PCP. Recommend to recheck hemoglobin A1c every 3 months to monitor her progress. Follow-up with PCP to further address. Patient with hypertension. Patient previously on Vasotec 10 mg 1 pill twice daily, Norvasc/valsartan 10/320 mg daily, and nadolol 80 mg daily. Medications were adjusted during the course of her stay.patient was switched to Vasotec 10 mg 1 pill twice daily and Norvasc 5 mg 1 pill twice daily. Nadolol was discontinued due to low heart rate. Since the patient is taking Vasotec recommend not to take valsartan in combination. At discharge blood pressure stable. At discharge will recommend to continue Vasotec 10 mg 1 pill twice daily and Norvasc 5 mg 1 pill twice daily. Recommend to discontinue Norvasc/valsartan and nadolol. Recommend to monitor her blood pressure daily. Recommend to maintain blood pressure less than 130/80. Consider increasing Vasotec if blood pressure remains above 140/90. This can be done with the help of a PCP. Education on hypertension provided. Patient with hyperlipidemia. At discharge patient will continue with Lipitor 40 mg daily. Patient with history of breast cancer. At discharge patient will continue with tamoxifen 20 mg daily. Diet: AHA Activity: Fall precautions Followup: [facility]OTO[facility] [Primary Care Provider] - Time spent managing pt's care (in minutes): 55
[2021-05-27] MEDS ORDERED: SMZ./TMP. 800/160 MG TABLET PO SCH (09:00)
[2021-05-27] MEDS ORDERED: ENALAPRIL 10 MG TAB PO SCH ×2 (21:00)
== END 2021-05-27 10:40 | disposition home or self-care (01) | DRG 690 ==
LOC: ER 17:52 → ERHOLD 21:05 → 4TH 05-25 11:28
PROVIDERS: ADMIT Family Medicine; ATTEND Family Medicine
DX: N39.0 Urinary tract infection, site not specified (principal); R55 Syncope and collapse; B96.20 Unspecified Escherichia coli [E. coli] as the cause of diseases classified elsewhere; E11.9 Type 2 diabetes mellitus without complications; I10 Essential (primary) hypertension; E78.5 Hyperlipidemia, unspecified; C50.919 Malignant neoplasm of unspecified site of unspecified female breast; F17.200 Nicotine dependence, unspecified, uncomplicated; Z20.822 Contact with and (suspected) exposure to COVID-19
CPT/HCPCS: 36415; 70450; 71045; 72125; 80048; 80053; 80061; 80076; 81003; 81015; 82550; 82947; 83605; 83735; 83880; 84145; 84439; 84443; 84484; 85025; 85610; 87040; 87077; 87086; 87088; 87186; 93005; 93306; 93880; 94010; 96365; 96375; 97161; 99285; J0696; J1650; J3475; J7030; J7040; U0003

== ENCOUNTER 2022-11-09 08:09 | Observation (INO) | payer OTHER ==
--- OUTSIDE RECORDS SUMMARY | 2022-11-09 08:12 | XMS REPORT | Continuity of Care Document ---
:1945 Author Organization [facility] t Address [address] [place] [address] [place] [id number] Care Team Providers Name Role Phone Hetal Hurd Primary Care Physician [phone] CHICHI Attending Clinician Unavailable Bk Martins Attending Clinician Jesus Attending Clinician Unavailable Alice Guzman Attending Clinician HETAL HURD Attending Clinician Unavailable CHICHI Admitting Clinician Unavailable Jesus Admitting Clinician Unavailable Problems Condition Condition Condition Status Onset Resolution Last Treating Co mments Source Name Details Category Date Date Treatment Clinician Date D05.12 D05.12 Diagnosis Active 2017-082018-08-04 Me moria Active 09-27 05:27:00 l 07/27/2018 00:00: Pablo ace 00 [facility] NA NA Active Diagnosis Active 2017-082018-08-04 Memoria 07/27/2018 2- 05:14:00 l 00:00: Bert [facility] 00 Estrogen Estrogen Problem 2019-02-21 Memoria receptor receptor 13:10:55 l positive positive Pablo ace status status [ER+] [ER+] 02/21/2019 [facility] Essential Essential Problem 2019-02-21 Memoria (primary) (primary) 13:10:55 l hypertensi hypertensi rmann on on 02/21/2019 [facility] Type 2 Type 2 Problem 2019-02-21 Miguel brenda diabetes diabetes 13:10:55 l mellitus mellitus Pablo n without without complicati complicati ons ons 02/21/2019 [facility] Nicotine Nicotine Problem 2019-02-21 Memoria dependence dependence 13:10:55 l , , [place] cigarettes cigarettes , , uncomplica uncomplica roseann roseann 02/21/2019 [facility] Gastro-eso Gastro-es Problem 2019-02-21 Memoria phageal ophageal 13:10:55 l reflux reflux Bert disease disease without without esophagiti esophagiti s s 02/21/2019 [facility] Other long Other Problem 2019-02-21 M emoria [facility] 13:10:55 l (current) (current) Herm willi drug drug therapy therapy 02/21/2019 [facility] alf alf Problem 2019-02-21 Memoria (current) (current) 13:10:55 l use of use of Bert oral oral hypoglycem hypoglycem ic drugs ic drugs 02/21/2019 [facility] Amnesia Amnesia Problem Resolve 2021-04-07 M emoria (finding) (finding) d 01:26:50 l Resolved [place] Problem 04/07/2021 [facility] Dementia Dementia Problem Active 2021-04-07 Memoria (disorder) (disorder) 01:26:50 l Active [place] Problem 04/07/2021 [facility] Depressive Depressiv Problem Active 2021-04-07 Memoria disorder e disorder 01:26:50 l (disorder) (disorder) He rmann Active Problem 04/07/2021 [facility] Hyperlipid Hyperlipi Problem Active 2021-04-07 Memoria emia demia 01:26:50 l (disorder) (disorder) He rmann Active Problem 04/07/2021 [facility] Hypertensi Hypertens Problem Active 2021-04-07 Memoria ve inocente 01:26:50 l disorder, disorder, Herm willi systemic systemic arterial arterial (disorder) (disorder) Active Problem 04/07/2021 [facility] Incontinen Incontine Problem Active 2021-04-07 Memoria ce nce 01:26:50 l (finding) (finding) Herm willi Active Problem 04/07/2021 [facility] Diabetes Diabetes Problem Active 2021-04-07 Memoria mellitus mellitus 01:26:50 l type 2 type 2 [place] (disorder) (disorder) Active Problem 04/07/2021 [facility] History of Past Illness Condition Condition Condition Status Onset Resolution Last Treating Co mments Source Name Details Category Date Date Treatment Clinician Date Intrad[place]a Problem 2017-2019-02-22 2019-02-22 Memoria l 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:30: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:57 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 08/13/2018 02/22/2019 ANA [facility] Allergies, Adverse Reactions, Alerts Allergy Allergy Status Severity Reaction(s) Onset Inactive Treating Comm ents Source Name Type Date Date Clinician No Known No Known Active Memori a Medicati Medicati l on on [place] Allergie Allergie s s NKFA NKFA Active Memoria l [place] Benadryl Benadryl Active Memori a l Bert Social History Social Habit Start Date Stop Date Quantity Comments Source History of tobacco Smokes tobacco [facility] use daily [facility] Social History 2021-03-20 2021-03-20 [facility] natasha 19:20:19 19:20:19 Cigarettes smoked 2018-06-24 2018-06-[address] [facility] current (pack per 00:00:00 00:00:00 [facility] Center day) - Reported Cigarette 2018-06-24 2018-06-[address] [facility] pack-years 00:00:00 00:00:00 [facility] Tobacco use and 2018-06-24 2018-06-24 Smokeless tobacco [facility] exposure 00:00:00 00:00:00 non-user [facility] Alcohol intake 2018-06-24 2018-06-24 Current drinker [facility] 00[facility]00:00 00:00:00 of alcohol [facility] (finding) Sex Assigned At [address] [facility] 00:00:00 00:00:00 [facility] Smoking Status Start Date Stop Date Source Smokes tobacco daily 2018-06-24 00:00:00 [facility] Medications Ordered Filled Start Stop Current Ordering Indication Dosage Frequency Signature Comments Components Source Medication Medication Date Date Medication? Clinician (SIG) Name Name 24 HR Yes 8 mg = 1 Memoria galantamine 7-27 cap, PO, l hydrobromid 20:06: QAM, # 30 H ermann e 8 MG 00 cap, 3 Extended Refill(s), Release Pharmacy: [facility] [Razadyne] cy #[id number], 154.94, cm, 03/20/21 14:14:00 CDT, Height, 46.818, kg, 03/20/21 14:14:00 CDT, Weight Memantine 2020-0 No 5 mg = 1 Miguel brenda hydrochlori 7-09 tab, PO, l de 5 MG 16:22: BID, # 180 Herm willi Oral Tablet 00 tab, 2 [Namenda] Refill(s), Pharmacy: [facility] cy #[id number], 154.94, cm, 02/06/21 14:45:00 CDT, Height, 48.182, kg, 02/06/21 14:45:00 CDT, Weight Memantine 0 Yes 5 mg = 1 Miguel brenda hydrochlori 6-15 tab, PO, l de 5 MG 20:19: BID, # 60 Pili nn Oral Tablet 00 tab, 3 [Namenda] Refill(s), Pharmacy: [facility] cy #[id number], 154.94, cm, 02/06/21 14:45:00 CDT, Height, 48.182, kg, 02/06/21 14:45:00 CDT, Weight Mirtazapine 0 No 15 mg = 1 M emoria 15 MG Oral 6-08 tab, PO, l Tablet 18:09: Bedtime, # Pili nn [Remeron] 00 90 tab, 1 Refill(s), Pharmacy: [facility] cy #[id number], 47.727, kg, 01/08/21 11:37:00 CDT, Weight Mirtazapine 0 Yes 15 mg = 1 M emoria 15 MG Oral 5-17 tab, PO, l Tablet 17:44: Bedtime, # Pili nn [Remeron] 00 30 tab, 3 Refill(s), Pharmacy: [facility] cy #[id number], 47.727, kg, 01/08/21 11:37:00 CDT, Weight taMOXifen 2020-0 Yes TAKE 1 Memori a 20 mg oral 5-17 TABLET BY l tablet 16:52: MOUTH Bert 00 EVERY DAY Tylenol 2018- No 1,000 mg, Memor ia 2-11 Route: PO, l 20:03: ONCE, Dosing Weight 63.636, kg, Start date: 08/04/18 14:03:00 [employer], Stop date: 08/04/18 14:03:00 [employer] Dexamethaso 2017-08 No Notes: Miguel brenda ne 2-11 Concentrat l 17:55: ion: 4mg/ml Meperidine 2017-08 No Notes: Memor ia 2-11 (Same As: l 17:55: Demerol) Fentanyl 2017-08 No Notes: Memoria 2-11 (Same as: l 17:55: Sublimaze) Preservati ve free. Flumazenil 2017-08 No Notes: Memor ia 2-11 (Same as: l 17:55: Romazicon) Naloxone 2017-08 No Notes: Memoria 2-11 (Same as: l 17:55: Narcan) Morphine 2017-08 No Notes: Memoria 2-11 (Same l 17:55: as:MORPhin e Sulfate) Acetaminoph 2017-08 No Notes: Miguel brenda en 2-11 Infuse l 17:55: over 15 minutes Do not exceed 4gm/day of acetaminop hen MEDICATION WASTE Product Size: 1000 mg Product Wasted: ___ mg Labetalol 2017-08 No Notes: Memori a 2-11 (Same as: l 17:55: Normodyne, Trandate) Push over 2 minutes Give bolus over 2-3 minutes. Hydralazine 2017-08 No Notes: Miguel brenda 2-11 (Same as: l 17:55: Apresoline ) Push over 5 minutes Insulin 2017-08 No Notes: Memoria Lispro 2-11 (Same as: l 17:55: Humalog ) Roll in palms of hands gently; Do not shake `vigorousl y. "Single Patient Use Only " WASTE: F/P - Black; E - Municipal Trash Bin Stable for 28 days at room temperatur e. Expires in days from ____Date Promethazin 2017-08 No 6.25 mg, Me moria e 2-11 Route: l 17:55: IVPB, ONCE, Dosing Weight 63.636, kg, PRN Nausea & Vomiting, Start date: 08/04/18 11:55:00 [employer] Ondansetron 2017-08 No 4 mg, Memor ia 10-05 Route: l 17:55: IVP, ONCE, Dosing Weight 63.636, kg, PRN Nausea & Vomiting, Start date: 08/04/18 11:55:00 [employer] metoclopram 2017-08 No Route: IV, Memoria ines (ANES) 10-05 Drug form: l 17:00: INJ, ONCE, Stop date: 08/04/18 11:00:00 [employer] ondansetron 2017-08 No Route: IV, Memoria (ANES) 2 Drug form: l 17:00: INJ, ONCE, Stop date: 08/04/18 11:00:00 [employer] Acetaminoph 2017-08 No 1 tab, PO, Memoria en 325 MG / 10-05 Q8H, PRN l tramadol 16:56: Pain, X 10 Her irby hydrochlori 00 day, # 15 de 37.5 MG tab, 0 Oral Tablet Refill(s) [Ultracet] phenylephri 2017-08 No Route: IV, Memoria ne (ANES) 10-05 Drug form: l 16:55: INJ, ONCE, Stop date: 08/04/18 10:55:00 [employer] ceFAZolin 2017-08 No Route: IV, Me moria (ANES) 10-05 Drug form: l 16:50: INJ, ONCE, Stop date: 08/04/18 10:50:00 [employer] fentaNYL 2017-08 No Route: IV, Mem oria (ANES) 10-05 Drug form: l 16:45: INJ, ONCE, Stop date: 08/04/18 10:45:00 [employer] Lactated 2017-08 No Route: IV, Mem oria Ringers - Total l Injection 16:04: Volume: Pili nn IV (ANES) 00 1,000, 1000 mL Start date: 08/04/18 10:04:00 [employer], Stop date: 08/04/18 11:04:00 [employer] Insulin 2017-08 No 3 unit, Memoria regular 2-11 Route: IV, l 14:25: ONCE, Bert 00 Dosing Weight 63.636, kg, Start date: 08/04/18 8:25:00 [employer], Stop date: 08/04/18 8:25:00 [employer] Vitamin D3 2017-08 Yes 5,000 Memori a 5000 intl 2-10 IntlUnit = l units oral 16:09: 1 tab, PO, H ermann tablet 00 QPM, 0 Refill(s) Vitamin B12 2017-08 Yes 500 Memori a 500 mcg 2-10 microgram l oral tablet 16:09: = 1 tab, He rmann 00 PO, Daily, # 30 tab, 0 Refill(s) Calcium 600 2017-08 Yes 1 tab, PO, Memoria +D oral 2-10 BID, 0 l tablet 16:08: Refill(s) Pablo n 00 atorvastati 2017-08 Yes 40 mg = 1 M emoria n 40 mg 2-10 tab, PO, l oral tablet 16:08: Bedtime, # Bert 00 30 tab, 0 Refill(s) Aspirin 81 2017-08 Yes 81 mg = 1 Me moria MG Enteric 2-10 tab, PO, l Coated 16:07: Daily, # Bert Tablet 00 90 tab, 3 Refill(s) metFORMIN 2017-08 Yes 500 mg = 1 Me moria 500 mg oral 2-10 tab, PO, l tablet, 16:07: BID-Meals, Herm willi extended 00 # 60 tab, release 1 Refill(s) pantoprazol 2017-08 Yes 40 mg = 1 M emoria e 40 mg 2-10 tab, PO, l oral 16:07: Daily, # Bert enteric 00 30 tab, 1 coated Refill(s) tablet Amlodipine 2017-08 Yes 1 tab, PO, M emoria 10 MG / 2-10 Daily, # l valsartan 16:06: 30 tab, 0 Her irby 320 MG Oral 00 Refill(s) Tablet Enalapril 2017-08 Yes 10 mg = 1 Mem oria Maleate 10 2-10 tab, PO, l MG Oral 16:03: BID, 0 Bert Tablet 00 Refill(s) [Vasotec] nadolol 80 2017-08 Yes 80 mg = 1 Me moria mg oral 2-10 tab, PO, l tablet 16:03: Daily, # [place] 00 30 tab, 0 Refill(s) nadolol 2017-08 Yes 80mg QD Take [address] [facility] ([facility] 0-[facility] 80 MG 10:14: daily. Medical tablet 44 [place] enalapril 2017-08 Yes 10mg QD Take [address] (VASOTEC) 0-31 [facility] 10 MG 10:14: daily. Medical tablet 44 [place] amlodipine- 2017-08 Yes 1{tbl} QD Take [address] valsartan 0-31 tablet by [facility] (EXFORGE) 10:14: mouth Medical 10-320 mg 44 daily. Center per tablet pantoprazol 2017-08 Yes 40mg QD Take [address] [facility] 0-31 by [facility] (PROTONIX) 10:14: daily. Medic al 40 MG 44 Center tablet metFORMIN 2017-08 Yes 1000mg QD Take 1,[address] [facility] [facility] (GLUCOPHAGE 0-31 mg by [facility] ) 500 MG 10:14: mouth Medical tablet 44 daily. [place] atorvastati 2017-08 Yes 40mg QD Take [address] n (LIPITOR) 0-31 by mouth Luke s 40 MG 10:14: daily. Medical tablet 44 [place] aspirin 81 2017-08 Yes 81mg QD Take [address] MG EC 0-31 [facility] tablet 10:14: daily. Medical 44 [place] calcium 2017-08 Yes 1{tbl} Q.5D Take [address] carbonate-v 0-31 tablet by Maritza es itamin D2 10:14: mouth 2 Medic al 500 44 (two) Center mg(1,250mg) times -200 unit daily. tablet Vital Signs Vital Name Observation Time Observation Value Comments Source Systolic (mm Hg) 2021-03-20 19:14:00 Miguel Noel Diastolic (mm Hg) 2021-03-20 19:14:00 Susu Noel Heart Rate 2021-03-20 19:14:00 Kinjal Noel Respitory Rate 2021-03-20 19:14:00 Julia Wilkerson Height 2021-03-20 19:14:00 154.94 cm Kinjal Noel Weight 2021-03-20 19:14:00 Kinjal Noel BMI Calculated 2021-03-20 19:14:00 Memori al [place] Systolic (mm Hg) 2021-02-06 19:09:00 Miguel rial Bert Diastolic (mm Hg) 2021-02-06 19:09:00 Mem orial Bert Heart Rate 2021-02-06 19:09:00 [facility] [place] Respitory Rate 2021-02-06 19:09:00 Memori al Bert Height 2021-02-06 19:09:00 154.94 cm Memorial Bert Weight 2021-02-06 19:09:00 Memorial Bert BMI Calculated 2021-02-06 19:09:00 Memori al [place] Systolic (mm Hg) 2021-01-08 16:37:00 Miguel rial [place] Diastolic (mm Hg) 2021-01-08 16:37:00 Mem orial Bert Heart Rate 2021-01-08 16:37:00 [facility] [place] Respitory Rate 2021-01-08 16:37:00 Memori al [place] Weight 2021-01-08 16:37:00 [facility] Bert Respitory Rate 2018-08-04 19:00:00 Memori al Bert Systolic (mm Hg) 2018-08-04 19:00:00 Miguel rial [place] Diastolic (mm Hg) 2018-08-04 19:00:00 Mem orial Bert Systolic (mm Hg) 2018-08-04 18:30:00 Miguel rial [place] Diastolic (mm Hg) 2018-08-04 18:30:00 Mem orial [place] Respitory Rate 2018-08-04 18:30:00 Memori al [place] Respitory Rate 2018-08-04 18:15:00 Memori al [place] Systolic (mm Hg) 2018-08-04 18:15:00 Miguel rial Bert Diastolic (mm Hg) 2018-08-04 18:15:00 Mem orial [place] Heart Rate 2018-08-04 11:40:00 [facility] Bert Temperature Oral (F) 2018-08-04 11:40:00 97.8 F [facility] Bert Weight 2018-08-03 16:01:00 [facility] [place] Height 2018-08-03 16:01:00 152.4 cm Memorial Bert BMI Calculated 2018-08-03 16:01:00 Memori al Bert Procedures Procedure Date / Time Performed Performing Clinician Sourc e Tonsillectomy [facility] Bert Hysterectomy [facility] Appendectomy [facility] Encounters Start End Encounter Admission Attending Care Care Encounter Source Date/Time Date/Time Type Type Clinicians Facility Department ID 2022-03-06 2022-03-06 Outpatient CHICHI PONCE [id number] [place] 11:18:00 11:18:00 [facility] 2021-04-03 2021-04-05 Outside nullFlavo MNA [id number] Memoria 14:38:12 04:59:59 Medical r Neurology 00 l Records John Thompsonann 2021-04-03 2021-04-04 Outpatient MHMISCHER MHMISCHER [id number] 09:38:12 23:59:59 00 2021-03-20 2021-03-21 Outpatient nullFlavo MNA [id number] Memoria 19:30:00 04:59:59 r Neurology 03 l Garrett Bert 2021-03-20 2021-03-20 Outpatient MARIBETH MartinsSCHER 014 [id number] 14:30:00 23:59:59 Bk 03 Walt 2021-03-20 2021-03-20 Outpatient MHIE MHIE [id number] Memoria 14:30:00 14:30:00 03 mike Bert 2021-03-01 2021-03-02 Between nullFlavo MNA [id number] Memoria 16:08:10 16:08:10 Visit r Neurology 02 l Garrett Bert 2021-03-01 2021-03-02 Outpatient MHMISCHER MHMISCHER [id number] 11:08:10 11:08:10 02 2021-02-06 2021-02-07 Outpatient nullFlavo MNA [id number] Memoria 19:45:00 04:59:59 r Neurology 02 l Garrett Bert 2021-02-06 2021-02-06 Outpatient MARIBETH MartinsMISCHMONIK [id number] 14:45:00 23:59:59 Bk Elina Walt 2021-02-06 2021-02-06 Outpatient MHIE MHIE [id number] Memoria 14:45:00 14:45:00 02 mike Bert 2021-01-08 2021-01-09 Outpatient nullFlavo MNA [id number] Memoria 16:30:00 04:59:59 r Neurology 01 l John Noel 2021-01-08 2021-01-08 Outpatient MARIBETH Martins [facility] [id number] 11:30:00 23:59:59 Bk 01 Walt 2021-01-08 2021-01-08 Outpatient MHIE IE [id number] Memoria 11:30:00 11:30:00 01 mike Noel 2020-09-18 2020-09-18 Ambulatory nullFlavo MNA [id number] Memoria 16:00:00 16:00:00 Pre-Reg r Neurology 00 l John Thompsonann 2020-09-18 2020-09-18 [id number] 10:00:00 10:00:00 Bk 00 Walt 2019-12-08 2019-12-08 Outpatient Raju_P MMG MMG [id number] [place] 02:08:00 02:08:00 [facility] 2018-08-04 2018-08-05 Outpatient nullFlavo [facility] [id number] Memoria 13:03:00 05:59:00 r Outpatient 00 l [facility] 2018-08-04 2018-08-04 Outpatient Thomas [id number] 07:03:00 23:59:00 Alice [id number] Aleisha [id number] 2018-08-04 2018-08-04 Day nullFlavo [facility] [id number] Memoria 11:10:00 19:30:00 Surgery r Bert 01 l [facility] 2018-08-04 2018-08-04 Outpatient Thomas [facility] [id number] 05:10:00 13:30:00 Alice 01 Aleisha Results Test Description Test Time Test Comments Results Result Comments Source HEMATOLOGY 2018-08-04 12:14:00 Test Item Value Reference Range Interpretation Comme nts WBC (test code = WBC) 11.2 3.7-10.4 [facility] 12:14:00 Test Item Value Reference Range Interpretation Comments MCV (test code = MCV) 99.6 80.0-98.0 [facility]dXXVKUYSELX1806-77-77 12:14:00 Test Item Value Reference Range Interpretation Comments MCH (test code = MCH) 32.9 pg 27.0-31.0 [facility] [id number] 12:14:00 Test Item Value Reference Range Interpretation Comments CA 27 29 (test code = 19 See_Comment [Auto mated message] The CA 27 29) system which ge nerated this result transmit roseann reference range : <=40. The reference range was not used to interpr et this result as jenniffer l/abnormal. [facility] [id number] 12:14:00 Test Item Value Reference Range Interpretation Comments CEA (test code = CEA) 4.8 See_Comment [Auto mated message] The system which ge nerated this result transmit roseann reference range : <=3.0. The reference range was not used to interpr et this result as jenniffer l/abnormal. [facility]WolqollAQSKILCFAEXE1286-56-31 12:14:00 Test Item Value Reference Range Interpretation Comments AGAP (test code = AGAP) 10.9 10.0-20.0 [facility]ault[id number] 12:14:00 Test Item Value Reference Range Interpretation Comments eGFR (test code = eGFR) 73 [facility]aultRwirjfvDHWCNSNPPDVR0650-60-97 12:14:00 Test Item Value Reference Range Interpretation Comments Chloride Lvl (test code = Chloride Lvl) 104 95-109 [facility]ault[id number] 12:14:00 Test Item Value Reference Range Interpretation Comments CO2 (test code = CO2) 27 24-32 [id number] 12:14:00 Test Item Value Reference Range Interpretation Comments Calcium Lvl (test code = Calcium Lvl) 10.7 8.5-10.5 [facility]ault[id number] 12:14:00 Test Item Value Reference Range Interpretation Comments Glucose Lvl (test code = Glucose Lvl) 196 70-99 [facility] Sault[id number] 12:14:00 Test Item Value Reference Range Interpretation Comments BUN (test code = BUN) 11 7-22 [facility] SaultRtguoquKDFWVMQQUEDQ7616-22-65 12:14:00 Test Item Value Reference Range Interpretation Comments Potassium Lvl (test code = Potassium 3.9 3.5-5.1 Lvl) [facility]ault[id number] 12:14:00 Test Item Value Reference Range Interpretation Comments Sodium Lvl (test code = Sodium Lvl) 138 135-145 [facility] SaultPqc[id number] 12:14:00 Test Item Value Reference Range Interpretation Comments Creatinine Lvl (test code = Creatinine 0.80 0.50-1.40 Lvl) [facility]FwjvnyqKLKPQSBSAL4053-90-61 12:14:00 Test Item Value Reference Range Interpretation Comments Eosinophils (test code = 1.6 See_Comment [A utomated message] The Eosinophils) system which ge nerated this result tra nsmitted reference range : <=4.0. The reference r almaz was not used to int erpret this result as normal/abnormal . [facility] HospitalDtjsplgAGVZUBDYRG0505-81-49 12:14:00 Test Item Value Reference Range Interpretation Comments Monocytes (test code = Monocytes) 7.4 2.0-12.0 [facility] HospitalKgmfniiCDRPJGIGIH0370-48-77 12:14:00 Test Item Value Reference Range Interpretation Comments Neutrophils # (test code = Neutrophils 6.8 1.5-8.1 #) [facility] Hospit[id number] 12:14:00 Test Item Value Reference Range Interpretation Comments Basophils (test code = 2.0 See_Comment [Aut omated message] The Basophils) system which ge nerated this result tra nsmitted reference range : <=1.0. The reference r almaz was not used to int erpret this result as normal/abnormal . [facility] Hospit[id number] 12:14:00 Test Item Value Reference Range Interpretation Comments Lymphocytes # (test code = Lymphocytes 3.2 1.0-5.5 #) [facility] HospitalJ[id number] 12:14:00 Test Item Value Reference Range Interpretation Comments Monocytes # (test code 0.8 See_Comment [Aut omated message] The = Monocytes #) system which generated this result tra nsmitted reference range : <=0.8. The reference r almaz was not used to int erpret this result as normal/abnormal . [facility] Hospit[id number] 12:14:00 Test Item Value Reference Range Interpretation Comments Basophils # (test code 0.2 See_Comment [Aut omated message] The = Basophils #) system which generated this result tra nsmitted reference range : <=0.2. The reference r almaz was not used to int erpret this result as normal/abnormal . [facility] HospitalVmadenoKGOUXEHBWF3218-95-50 12:14:00 Test Item Value Reference Range Interpretation Comments Eosinophils # (test code 0.2 See_Comment [A utomated message] The = Eosinophils #) system whic h generated this result tra nsmitted reference range : <=0.5. The reference r almaz was not used to int erpret this result as normal/abnormal . [facility] HospitalWeuxnbqXCEAEWYQKS3927-27-59 12:14:00 Test Item Value Reference Range Interpretation Comments Segs (test code = Segs) 60.8 45.0-75.0 [facility] HospitalDauwxcoMTWQHEAYRX4032-51-54 12:14:00 Test Item Value Reference Range Interpretation Comments Lymphocytes (test code = Lymphocytes) 28.2 20.0-40.0 [facility] HospitalNqhtnzcMHHPDLOIOJ2641-50-72 12:14:00 Test Item Value Reference Range Interpretation Comments Platelet (test code = Platelet) 241 133-450 [facility] HospitalPqmtnaiPEWIFPYBSR1791-20-56 12:14:00 Test Item Value Reference Range Interpretation Comments MPV (test code = MPV) 9.6 7.4-10.4 [facility] HospitalRokvvkwOWOIZXOQNG2450-14-00 12:14:00 Test Item Value Reference Range Interpretation Comments RBC (test code = RBC) 5.01 4.20-5.40 [facility] HospitalJduwqlnBVAEELDGLY0378-59-71 12:14:00 Test Item Value Reference Range Interpretation Comments MCHC (test code = MCHC) 33.1 32.0-36.0 [facility] HospitalQvmriqqAXRDUNXBWD6851-10-73 12:14:00 Test Item Value Reference Range Interpretation Comments RDW (test code = RDW) 13.2 11.5-14.5 [facility] HospitalNroeihpORNHFZAOQK4174-23-88 12:14:00 Test Item Value Reference Range Interpretation Comments Hgb (test code = Hgb) 16.5 12.0-16.0 [facility] HospitalFfgcwfaPNKQNKWGLH6994-89-30 12:14:00 Test Item Value Reference Range Interpretation Comments Hct (test code = Hct) 49.8 36.0-48.0 [facility], STEREOTACTIC BIOPSY, BREAST, [id number] 09:52:00Reason for Exam:->microcalcificationsAddendum [facility]#: [id number]: 06/30/2018 Sasha Murphy M.D. 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 Addendum [facility]#:[id number] - MM, STEREOTACTIC BIOPSY, BREAST, LEFTSTEREOTACTIC GUIDED BIOPSY LEFT BREAST WITHMARKING DEVICE INSERTED AND POST DIGITAL MAMMOGRAPHIC IMAGING AND RADIOGRAPHIC SPECIMEN IMAGIN06/24/2018PATIENT CONSENT: The procedure, risks, benefits and alternatives were discussed with the patient. Informed consent was obtained. A stereotactic guided biopsy was performed for the area of calcifications located in the left breast at 9 o'clock middle depth. The skin was prepped in the usual manner. Local anesthetic was administered to the access site. A skin allen was made in the breast. The abnor mality was approached from the medial aspect using a prone table. A 9 gauge biopsy needle was placedadjacent to the abnormality under computer guidance and confirmatory stereotactic mammography imageswere obtained to document needle placement. Once the needle was documented to be in the correct location, four specimens were obtained using Farseer EVIVA device. A clip was inserted into the biopsy cavity. Post procedure digital mammographic imaging demonstrates the clip at the targeted area. The specimens were sent to the laboratory for pathological analysis. IMPRESSION: STEREOTACTIC GUIDED BIOPSYStereotactic guided biopsy of the area of calcifications in the left breast at 9 o'clock middle depth was successful with no apparent post procedure complications. The imaged specimens includes the calcifications. Sasha Murphy M.D. pth/:06/24/2018 13:30:25 Operations Support Coordinator: Agata YATES)(Anthony), [facility] [id number] TISSUE [id number] 14:11:00Surgical Pathology Report Case: [id number] Authorizing Provider: Sasha Murphy MD Collected: 06/24/2018 [id number] Ordering Location: [facility] Received: 06/24/2018 1352 Pathologist: Shey Hurtado MD Specimen: Breast, Left REASON FOR ADDENDUM: TO REPORT BIOMARKERS RESULTSBIOMARKERS PERFORMED ON SECTION A1 ESTROGEN RECEPTOR: POSITIVEProportion score: 5/5Intensity score: 3/3SUMMARY: 100% POSITIVE, STRONG INTENSITY PROGESTERONE RECEPTOR: POSITIVEProportion score: 4/5Intensityscore: 2/3SUMMARY: 50% POSITIVE, MODERATE INTENSITYCAP REGULATION: FIXATION TIME FOR BIOMARKERS ASSESSMENTCollection date and time: 06/24/2018; 1345 HRSPlaced in fixative date and time: 06/24/2018; 1345 HRSRemoved from formalin date and time: 06/25/2018; 0400 HRSMethodology:Fixation type and length: tissue was fixed in 10% neutral buffered formalin for a minimal of at least 6 hours and not longer than 72 hours.Antibody and Assay Methodology: Antibodies for ER, PgR, Her2 and Ki67 were assessed using clones SP1 ([place]), [id number] (DAKO), 4B5 (FDA Approved [place] Pathway) and [id number] ([place]) respectively.Control Slides Examined: In- house known ER, OK, HER2 and Ki67 positive controls were evaluated alongwith test tissue. These control slides run alongside of the patients sample show appropriate staining. Internal controls when available are evaluated.Interpretive Criteria: The staining results according to the ASCO/CAP guidelines for HER2 (David AC et al. Arch Pathol Lab Med 2017, October 15) and ER/OK (Mary Ann JAMISON et al. Arch Pathol Lab Med 2010; 134:e48-e72) by ASCO/CAP guidelines.ER and OK "positive" requires greater or equal to 1% tumor cells showing nuclear staining.HER 2 "positive" (3+) requires circumferential membrane staining that is complete and intense in more than 10% of tumor cells. HER2 "equivocal" (2+) requires weak to moderate complete membrane staining observed in more than 10% of tumor cells .HER2 "negative" (1+) requires incomplete membrane staining that is faint/barely perceptible and in more than 10%of tumor cells. HER2 "negative (0) requires no staining or membrane staining that is incomplete and is faint/barely perceptible and in less than or equal to 10% of tumor cellsThe ER/OK Proportion Score indicates the proportion of positive staining tumor cells (0 = none; 1 < 1/100; 2 = 1/100-1/10; 3 = 1/10-1/3; 4 = 1/3-2/3; 5> 2/3). The intensity score indicates the average intensity of positive staining tumor cells (0 = none; 1 = weak; 2 = intermediate; 3 = strong). For the purpose of defining "positive", the proportion and intensity scores were added to obtain a total score (range 0-8). ER and PgR "positive" (total score >2) were defined in studies correlating IHC total scores with clinical outcome in patients receiving hormonal therapy (see: Modern Pathol 11:155, 1998; J Clin Oncol 17:1474, 1998; Int J Cancer 89:111, 1999; Breast Cancer Res Treat 76:S36[abst#30], 2002).Immunohistochemistry technical testing was performed at [facility], Pathology Laboratory where it was developed and its performance characteristics were determined. It has not been cleared or approved by the U.S. Food and Drug Administration. The FDA has determined thatsuch clearance or approval is not necessary. The test is used for clinical purposes. It should not be regarded as investigational or for research. This laboratory is certified under the Clinical Laboratory Improvement Amendments of 1988 (CLIA-88) as qualified to perform high complexity clinical laboratory testing.Addendum electronically signed by Shey Hurtado MD on 06/29/2018 at 2:11 PMBREAST, LEFT 9:00, STEREOTACTIC CORE BIOPSY - DUCTAL CARCINOMA IN SITU - NUCLEAR GRADE : 2/3 BY SBR CRITERIA - GROWTH PATTERN : CRIBRIFORM, SOLID - ASSOCIATED WITH CALCIFICATIONS - BIOMARKERS ARE PENDING S igning Pathologist Direct Phone Line: [phone] signed by Shey Hurtado MD on 06/26/2018 at 12:58 [id number] X 2Suspicious for DCISLeft 9 o'clock breast calcification The specimen is received in a formalin- filled container labeled with the patient's information and labeled "left 9 o'clock breast calcifications" and consists of multiple fragments of yellow- white breastcores ranging in length from 0.3 to 2 cm.Ink code: Black.The specimen is entirely submitted in A1 through A3. CG/ew Performed.[facility], Department of Pathology, [address] [place] [address], [place] [address], MF, DIGITAL, UNILATERAL, CONFER ROHAN, MAMMO, LEFT INCLUDING [id number] 08:18:00Left breast calcificationsMRN#: [id number] - MM, DIGITAL, UNILATERAL, CONFER ROHAN, MAMMO, LEFT INCLUDING CADUNILATERAL LEFT DIGITAL PROBLEM SOLVING MAMMOGRAM POST-PROCEDURE IMAGING FOR MARKER PLACEMENT: 06/24/2018No prior exams were available for comparison. The tissue of the left breast is heterogeneously dense. This may lower the sensitivity of mammography. The post procedure mammogram was performed on a separate mammography unit.A clip is placed at the biopsy site. IMPRESSION: POST PROCEDURE MAMMOGRAM FOR MARKER PLACEMENTAwait pathology results. Sasha Murphy M.D. pth/penrad:06/26/2018 08:18:07 Operations Support Coordinator: Agata ESTRADA (R)), [facility] Mammogram BI-RADS: Post- procedure mammogram for marker placement [id number] MM, MAMMO, SPECIMEN, RADIOGRAPH, LEFT 2018-06-24 13:30:00Reason for exam:->Left beast calcificationsMRN#: [id number] - MM, MAMMO, SPECIMEN, RADIOGRAPH, LEFTSPECIMEN LEFT BREAST: 06/24/2018Four stereotactic guided biopsy specimens were imaged for the area of calcifications located in the left breast at 9 o'clock middle depth. IMPRESSION: SPECIMENThe imaged specimens includes the calcifications. Sasha Murphy M.D. pth/:06/24/2018 13:30:51 Operations Support Coordinator: Agata ESTRADA (R)), [facility] [id number] Electronically signed by: SASHA MURPHY M.D. 06/24/2018 01:30 PM
[2022-11-09 08:43] LABS: Absolute Lymphocytes (CBC) 2.2 K/uL (0.7-4.9); Lymphocytes % 14.7 % (15.3-44.8); MCV 92.4 fL (80-100); MPV 8.3 fL (7.6-11.3); RBC Red Blood Cell Count 3.14 M/uL (3.86-4.86)
[2022-11-09 09:01] LABS: Potassium 4.4 mEq/L (3.5-5.1)
[2022-11-09 09:12] LABS: Specific Gravity 1.013 (1.005-1.030); Urine Bacteria <20 /HPF (<20); Urine Bilirubin NEGATIVE (Negative); Urine Blood 1+ (Negative); Urine Clarity Clear (Clear); Urine Color Light-Yellow (Yellow); Urine Glucose NEGATIVE (Negative); Urine Mucus Slight /HPF (None Seen); Urine Protein NEGATIVE (Negative); Urine RBC <5 /HPF (None Seen); Urine Urobilinogen Normal (Normal); Urine pH 6.5 (5.0-7.0)
[2022-11-09 09:25] LABS: SARS-COV-2 RT PCR NEGATIVE (NEGATIVE)
--- NOTE | 2022-11-09 09:30 | RAD REPORT ---
EXAM DESCRIPTION: Maribeth Single View11/09/2022 9:03 am CLINICAL HISTORY: Cough COMPARISON: 2020 FINDINGS: The lungs appear clear of acute infiltrate. The heart is normal size IMPRESSION: No acute abnormalities displayed
--- NOTE | 2022-11-09 09:56 | EDPHYS ---
Physician Documentation [facility] Name: Barbara Long Age: 77 yrs Sex: Female : 1945 Arrival Date: 11/09/2022 Time: 08:11 Bed 5 Private MD: ED Physician Barry Olivo HPI: 11/09 08:52 This 77 yrs old Female presents to ER via Wheelchair with complaints of Fever, fatigue. kb 08:52 The patient or guardian reports cough, that is intermittent, described as mild, flu kb symptoms, low-grade fever. Onset: The symptoms/episode began/occurred yesterday. Severity of symptoms: At their worst the symptoms were moderate, in the emergency department the symptoms are unchanged. Modifying factors: The symptoms are alleviated by nothing, the symptoms are aggravated by nothing. Associated signs and symptoms: Pertinent positives: fever, rhinorrhea. The patient has not experienced similar symptoms in the past. The patient has not recently seen a physician. Son reports pt has had cough, congestion and fever for approx 24 hours. . Historical: - Allergies: 08:22 Benadryl; ll1 - PMHx: 08:22 diabetes mellitus; Hypertensive disorder; Parkinson's disease; Dementia; ll1 Hypercholesterolemia; - Immunization history:: Client reports receiving the 2nd dose of the Covid vaccine. - Social history:: Smoking status: Patient/guardian denies using tobacco, the patient reports quitting approximately 2 years ago. ROS: 08:50 Abdomen/GI: Negative for abdominal pain, nausea, vomiting, diarrhea, and constipation. kb 08:50 Constitutional: Positive for fatigue, fever, malaise. 08:50 ENT: Positive for sinus congestion. 08:50 Respiratory: Positive for cough. 08:50 Neuro: Positive for weakness. 08:50 All other systems are negative. Exam: 08:50 Constitutional: This is a well developed, well nourished patient who is awake, alert, kb and in no acute distress. Head/Face: Normocephalic, atraumatic. ENT: Moist Mucous membranes Cardiovascular: Regular rate and rhythm with a normal S1 and S2. No gallops, murmurs, or rubs. No pulse deficits. Respiratory: Respirations even and unlabored. No increased work of breathing. Talking in full sentences Abdomen/GI: Soft, non-tender. No distention Skin: Warm, dry with normal turgor. Normal color. MS/ Extremity: Pulses equal, no cyanosis. Neurovascular intact. Full, normal range of motion. Neuro: Awake and alert, GCS 15, oriented to person, place, time, and situation. Moves all extremities. Normal gait. Vital Signs: 08:24 BP 131 / 62; Pulse 90; Resp 18; Temp 98.9; Pulse Ox 100% on R/A; Pain 0/10; ll1 09:05 BP 106 / 50; Pulse 93; Resp 16; Pulse Ox 99% on R/A; hb 08:24 Pain Scale: Adult ll1 MDM: 08:13 Patient medically screened. kb 08:50 Differential diagnosis: URI, bronchitis, pneumonia UTI, covid, flu. Data reviewed: kb vital signs, nurses notes. Historians other than the Patient: Daughter/Son: son. Care significantly affected by the following chronic conditions: Diabetes, Hypertension. 09:54 Consideration of Admission/Observation Patient was admitted/placed on observation. kb Management of patient was discussed with the following: Hospitalist: Dr Taveras accepts pt for admission. Counseling: I had a detailed discussion with the patient and/or guardian regarding: the historical points, exam findings, and any diagnostic results supporting the discharge/admit diagnosis, lab results, radiology results, the need for further work-up and treatment in the hospital. ED course: Family requests pt be admitted because she is unable to perform ADLs and she is a resident at an assisted living so they are concerned for her safety (falls).. 11/09 08:21 Order name: IV Start; Complete Time: 08:39 kb 11/09 08:21 Order name: Urine Microscopic Only kb 11/09 08:21 Order name: Urine Dipstick-Ancillary (obtain specimen); Complete Time: 08:39 kb 11/09 08:40 Order name: Straight Cath - Urine; Complete Time: 08:43 hb 11/09 08:21 Order name: CBC with Diff; Complete Time: 08:52 kb 11/09 08:21 Order name: Basic Metabolic Panel; Complete Time: 09:03 kb 11/09 08:43 Order name: UAM; Complete Time: 09:35 hb 11/09 08:21 Order name: COVID-19/FLU A+B; Complete Time: 09:35 kb 11/09 08:21 Order name: Chest Single View XRAY; Complete Time: 09:35 kb 11/09 09:42 Order name: Lactate w/ 2H reflex if indic. kb 11/09 09:42 Order name: Blood Culture Adult (2) kb Administered Medications: No medications were administered Disposition Summary: 11/09/22 09:56 Hospitalization Ordered Hospitalization Status: Observation kb Provider: rGeg Taveras Location: Telemetry/MedSurg (observation) kb Condition: Stable kb Problem: new kb Symptoms: are unchanged kb Bed/Room Type: Standard Room Assignment: kb Diagnosis - Weakness kb - Fever, unspecified kb - Cough kb Forms: - Medication Reconciliation Form kb - SBAR form kb Signatures: Dispatcher [employer] EDYoly Buenrostro, GENE RAMIREZ-Shreya Cleveland, RN RN Adama Mcmanus RN RN ll1
--- NOTE | 2022-11-09 09:56 | ER ---
Nurse's Notes [facility] Name: Barbara Long Age: 77 yrs Sex: Female : 1945 Arrival Date: 11/09/2022 Time: 08:11 Bed 5 Private MD: Diagnosis: Weakness;Fever, unspecified;Cough Presentation: 11/09 08:24 Chief complaint: Patient's son or daughter states: Cough, fatigue, fever for at least ll1 24 hours. Coronavirus screen: Vaccine status: Patient reports receiving the 2nd dose of the covid vaccine. Client denies travel out of the [place] in the last 14 days. congestion, cough unrelated to allergies, difficulty breathing, fatigue, fever, Client presents with at least one sign or symptom that may indicate coronavirus-19. Standard/surgical mask placed on the client. Ebola Screen: Patient denies travel to an Ebola-affected area in the 21 days before illness onset. Initial Sepsis Screen: Does the patient meet any 2 criteria? No. Patient's initial sepsis screen is negative. Does the patient have a suspected source of infection? Yes: Productive cough/pneumonia. Risk Assessment: Do you want to hurt yourself or someone else? Patient reports no desire to harm self or others. Onset of symptoms was November 08, 2022. 08:24 Method Of Arrival: Wheelchair ll1 08:24 Acuity: SONI 3 ll1 Triage Assessment: 08:26 General: Appears ill, Behavior is cooperative, appropriate for age. Pain: Denies pain. ll1 Neuro: Reports weakness. Cardiovascular: No deficits noted. Respiratory: Airway is patent Breath sounds with wheezes Parent/caregiver reports the patient having cough that is. Historical: - Allergies: 08:22 Benadryl; ll1 - PMHx: 08:22 diabetes mellitus; Hypertensive disorder; Parkinson's disease; Dementia; ll1 Hypercholesterolemia; - Immunization history:: Client reports receiving the 2nd dose of the Covid vaccine. - Social history:: Smoking status: Patient/guardian denies using tobacco, the patient reports quitting approximately 2 years ago. Screenin:47 [facility] ED Fall Risk Assessment (Adult) Score/Fall Risk Level 3 or more points = High hb Risk Oriented to surroundings, Maintained a safe environment, Educated pt \T\ family on fall prevention, incl call for assistance when getting out of bed, Hourly rounding (assess needs \T\ fall precautionary measures) done. Abuse screen: Denies threats or abuse. Denies injuries from another. Nutritional screening: No deficits noted. Tuberculosis screening: No symptoms or risk factors identified. Assessment: 08:47 General: Appears in no apparent distress. Behavior is calm, cooperative. Pain: Denies hb pain. Neuro: Level of Consciousness is awake, alert, obeys commands, Oriented to person, place. Cardiovascular: Patient's skin is warm and dry. Respiratory: Respiratory effort is even, unlabored, Respiratory pattern is regular, symmetrical. GI: No signs and/or symptoms were reported involving the gastrointestinal system. : No signs and/or symptoms were reported regarding the genitourinary system. EENT: No signs and/or symptoms were reported regarding the EENT system. Derm: Skin is pink, warm \T\ dry. Musculoskeletal: No signs and/or symptoms reported regarding the musculoskeletal system. Vital Signs: 08:24 BP 131 / 62; Pulse 90; Resp 18; Temp 98.9; Pulse Ox 100% on R/A; Pain 0/10; ll1 09:05 BP 106 / 50; Pulse 93; Resp 16; Pulse Ox 99% on R/A; hb 08:24 Pain Scale: Adult ll1 ED Course: 08:11 Patient arrived in ED. mr 08:13 Livan Mccallistin, [facility]. kb 08:13 Barry Olivo MD is Attending Physician. kb 08:15 Arm band placed on Patient placed in an exam room, on a stretcher. ll1 08:26 Triage completed. ll1 08:26 Inserted saline lock: 22 gauge in right forearm, using aseptic technique. Blood hb collected. 08:39 COVID-19/FLU A+B Sent. ll1 08:39 Urine Microscopic Only Sent. ll1 08:40 Shreya Templeton, RN is Primary Nurse. hb 08:47 Patient has correct armband on for positive identification. hb 09:05 Chest Single View XRAY In Process Unspecified. EDMS 09:56 Sami Taveras MD is Hospitalizing Provider. kb 09:56 Greg Taveras MD is Hospitalizing Provider. kb Administered Medications: No medications were administered Medication: 08:47 VIS not applicable for this client. hb Outcome: 09:56 Decision to Hospitalize by Provider. kb Signatures: Dispatcher [employer] Yoly Mccormick, GENE RAMIREZ-Sissy Dailey Heather, RN RN Adama Juarez RN RN ll1
[2022-11-09] MEDS ORDERED: NA CHLORIDE 0.9% 500 ML ONE (10:00)
[2022-11-09] MEDS ORDERED: D50W 25 GM/50 ML SYRINGE IV PRN (10:49)
[2022-11-09] MEDS ORDERED: GLUCAGON 1 MG/VIAL IM PRN (10:49)
[2022-11-09] MEDS ORDERED: ALBUTEROL 2.5 MG/3 ML NEB SOL NEB PRN (10:51)
[2022-11-09] MEDS: ARFORMOTEROL TARTRATE 15 MCG/2 ML VIAL.NEB NEB SCH ×2 (10:53→20:20)
[2022-11-09] MEDS ORDERED: D10W 125 ML IV PRN (10:54)
--- NOTE | 2022-11-09 10:54 | P.HP ---
Certification for Inpatient Patient admitted to: Observation With expected LOS: <2 Midnights Practitioner: I am a practitioner with admitting privileges, knowledge of patient current condition, hospital course, and medical plan of care. Services: Services provided to patient in accordance with Admission requirements found in Title 42 Section 412.3 of the Code of Federal Regulations Patient History Date of Service: 11/09/22 Reason for admission: Fever possible UTI History of Present Illness: Patient is 77 years of age lives in assisted living patient is disoriented General to the emergency room in a wheelchair with fever fatigue sudden in onset with cough and congestion just recently treated for a urinary tract infection patient lives alone complaining of lower extremity edema is a former smoker Allergies No Known Allergies Allergy (Unverified 05/25/21 00:19) Home Medications: Atorvastatin Calcium [Lipitor] 40 mg PO BEDTIME 05/25/21 Cholecalciferol (Vitamin D3) [Vitamin D3] 50 mcg PO DAILY 05/25/21 Enalapril Maleate [Vasotec] 10 mg PO BID 05/25/21 Metformin ER [Glucophage ER*] 500 mg PO BID 6AM 6PM 05/25/21 Sitagliptin Phosphate [Januvia] 100 mg PO DAILY 05/25/21 Tamoxifen Citrate 20 mg PO DAILY 05/25/21 Amlodipine [Norvasc*] 5 mg PO BID #60 tab 05/27/21 Smz./Tmp. [Bactrim Ds 800 MG/160 MG*] 1 tab PO BID #8 tab 05/27/21 - Past Medical/Surgical History Diabetic: Yes -: Diabetes type 2 -: Hypertension -: Hyperlipidemia -: Breast cancer -: Hysterectomy Psychosocial/ Personal History: Patient lives at home, alone - Family History Mother -: Cancer Sister -: Cancer - Social History Alcohol use: No CD- Drugs: No Caffeine use: No Review of Systems 10-point ROS is otherwise unremarkable General: Weakness Respiratory: Cough, Shortness of Breath Physical Examination - Vital Signs Temperature: 98.9 F Blood Pressure: 131/62 Pulse: 90 Respirations: 18 Pulse Ox (%): 100 - Physical Exam General: Alert, Oriented x1 Neck: Supple Respiratory: Clear to auscultation bilaterally, Diminished Cardiovascular: Normal S1 S2, Edema (2+ edema) Gastrointestinal: Normal bowel sounds, Soft and benign Musculoskeletal: No swelling Integumentary: No rashes, No breakdown - Studies Laboratory Data (last 24 hrs) 11/09/22 08:31: Sodium 136, Potassium 4.4, BUN 28 H, Creatinine 1.57 H, Glucose 215 H 11/09/22 08:31: WBC 14.70 H, Hgb 9.8 L, Hct 29.0 L, Plt Count 238 Assessment and Plan - Problems (Diagnosis) (1) UTI (urinary tract infection) Current Visit: Yes Status: Acute Plan: Patient is 77 years of age tested living resident admitted with fever fatigue some cough congestion former smoker was recently treated for cystitis chest x- ray is clear and is a diabetic hypertensive Parkinson's with dementia mildly an emic analysis positive for infection will start on IV Rocephin lower extremity edema to be related to the amlodipine otherwise hemodynamically stable will admit for observation Qualifiers: Urinary tract infection type: acute cystitis (2) Renal failure Current Visit: Yes Status: Acute Plan: Most likely acute will start on some IV fluids Qualifiers: Renal failure chronicity: acute - Advance Directives Does patient have a Living Will: No Does patient have a Durable POA for Healthcare: No
[2022-11-09] MEDS: Ringers Lactate 1,000 ML IV SCH ×2 (11:00→21:51)
[2022-11-09] MEDS ORDERED: CEFTRIAXONE 1000 MG/VIAL ONE (11:29)
[2022-11-09] MEDS: INSULIN -REGULAR HUMAN 50 UNIT/0.5 ML ML SQ SCH ×3 (11:30→21:00)
[2022-11-09 11:56] LABS: Thyroid Stimulating Hormone 4.65 uIU/mL (0.358-3.740)
--- NOTE | 2022-11-09 12:36 | RAD REPORT ---
EXAM DESCRIPTION: US - Renal Ultrasound-Complete - 11/09/2022 12:17 pm CLINICAL HISTORY: Renal failure COMPARISON: None FINDINGS: The right kidney measures 11 cm with a normal echotexture. The left kidney measures 9 cm with a normal echotexture. Hydronephrosis is not seen. No gross abnormality of bladder IMPRESSION: Unremarkable renal ultrasound.
[2022-11-09 13:38] VITALS: BMI 22.4
[2022-11-09] MEDS: CEFTRIAXONE 1,000 MG in NA CHLORIDE 0.9% 50 ML IVPB SCH (13:41)
[2022-11-09] MEDS ORDERED: Ringers Lactate 1,000 ML IV ONE (14:32)
[2022-11-09] MEDS ORDERED: METFORMIN HCL 500 MG TAB ONE (16:57)
[2022-11-09] MEDS ORDERED: INSULIN -REGULAR HUMAN 50 UNIT/0.5 ML ML ONE (16:57)
[2022-11-09] MEDS: METFORMIN ER 500 MG TAB PO SCH (18:00)
[2022-11-09] MEDS ORDERED: ARFORMOTEROL TARTRATE 15 MCG/2 ML VIAL.NEB ONE (20:36)
[2022-11-10 04:49] LABS: Hematocrit 29.5 % (36.0-45.0); MCV 93.7 fL (80-100); MPV 9.1 fL (7.6-11.3); RBC Red Blood Cell Count 3.14 M/uL (3.86-4.86)
[2022-11-10 05:11] LABS: Albumin 3.1 g/dL (3.4-5.0); Bilirubin Total 0.5 mg/dL (0.2-1.0); Potassium 4.5 mEq/L (3.5-5.1); Protein, Total 6.9 g/dL (6.4-8.2)
[2022-11-10] MEDS: METFORMIN ER 500 MG TAB PO SCH (06:02)
[2022-11-10] MEDS: Ringers Lactate 1,000 ML IV SCH ×5 (07:00→22:39)
[2022-11-10] MEDS: INSULIN -REGULAR HUMAN 50 UNIT/0.5 ML ML SQ SCH ×4 (07:30→20:25)
[2022-11-10] MEDS: ARFORMOTEROL TARTRATE 15 MCG/2 ML VIAL.NEB NEB SCH (08:00)
[2022-11-10] MEDS ORDERED: NA CHLORIDE 0.9% 50 ML ONE (08:16)
[2022-11-10] MEDS: CEFTRIAXONE 1,000 MG in NA CHLORIDE 0.9% 50 ML IVPB SCH (08:20)
[2022-11-10] MEDS: ENOXAPARIN 30 MG/0.3 ML SQ SCH (08:20)
[2022-11-10] MEDS ORDERED: ARFORMOTEROL TARTRATE 15 MCG/2 ML VIAL.NEB NEB PRN (08:34)
--- NOTE | 2022-11-10 08:59 | P.PN ---
Subjective Date of Service: 11/10/22 Chief Complaint: Fever possible UTI No acute events overnight. She is alert and oriented x 1 to self only, which is her baseline per family at bedside. They believe that she has improved compared to yesterday. She denies any chest pain, shortness of breath, abdominal pain, or dysuria. Review of Systems is unable to be obtained Neurological: Confusion (dementia) Physical Examination - Vital Signs Temperature: 97.2 F Blood Pressure: 119/71 Pulse: 91 Respirations: 20 Pulse Ox (%): 98 - Physical Exam General: Alert, In no apparent distress, Oriented x1 (to self) HEENT: Atraumatic, Mucous membr. moist/pink, Sclerae nonicteric Neck: JVD not distended Respiratory: Clear to auscultation bilaterally, Normal air movement Cardiovascular: No edema, Regular rate/rhythm, Normal S1 S2, No gallops, No rubs, No murmurs Gastrointestinal: Normal bowel sounds, Soft and benign, Non-distended, No tenderness, No rebound, No guarding Musculoskeletal: No clubbing Integumentary: No rashes Neurological: Normal speech, Normal affect, Dementia - Studies Laboratory Data (last 24 hrs) 11/09/22 08:31: Sodium 136, Potassium 4.4, BUN 28 H, Creatinine 1.57 H, Glucose 215 H Assessment And Plan - Plan # Sepsis secondary to Urinary Tract Infection - POA # Acute Toxic Metabolic Encephalopathy on Parkinson's Dementia # History of Recurrent Urinary Tract Infections She met sepsis criteria based on HR > 90 bpm and WBC > 12,000, and the suspected source is urinary. - Sepsis order set was initiated - Initial Lactate was 1.9 - Blood cultures drawn before antibiotics were given - Urine culture requested - Broad spectrum antibiotics started: Ceftriaxone - In regards to fluids: - 30 mL/kg of IV fluids was not administered given SBP > 90, MAP > 65, lactic acid < 4 # KDIGO Stage II Acute Kidney Injury - Creatinine = 1.57 -> 1.30 (baseline creatinine ~0.7 in 2020) - Urinalysis = 1+ blood, 2+ nitrite, 25 leukocyte esterase, trace yeast - Renal ultrasound = "unremarkable renal ultrasound." - IV fluids with Lactated Ringers @ 75 mL/hr - Renally dose medications - Avoid nephrotoxic agents # Type II Diabetes Mellitus - Hgb A1c = 7.5 % - Correction scale insulin - Hold home metformin, sitagliptin while hospitalized # Hypertension - Hold home amlodipine due to concern for sepsis - Hold home enalapril due to PHU # Dyslipidemia - Continue home atorvastatin # History of Breast Cancer - Continue home tamoxifen Kenneth Otero M.D.
[2022-11-10] MEDS ORDERED: ACETAMINOPHEN 325 MG TABLET PO PRN (16:54)
[2022-11-10] MEDS ORDERED: ATORVASTATIN 40 MG TAB PO SCH (21:00)
[2022-11-11 03:39] LABS: Absolute Lymphocytes (CBC) 1.5 K/uL (0.7-4.9); Hematocrit 28.5 % (36.0-45.0); Lymphocytes % 16.6 % (15.3-44.8); MCV 92.9 fL (80-100); MPV 8.7 fL (7.6-11.3); RBC Red Blood Cell Count 3.07 M/uL (3.86-4.86)
[2022-11-11 03:55] LABS: Potassium 4.1 mEq/L (3.5-5.1)
[2022-11-11] MEDS: INSULIN -REGULAR HUMAN 50 UNIT/0.5 ML ML SQ SCH ×2 (07:30→11:30)
[2022-11-11 09:16] VITALS: TEMP 98.1
[2022-11-11] MEDS: CEFTRIAXONE 1,000 MG in NA CHLORIDE 0.9% 50 ML IVPB SCH (10:01)
[2022-11-11] MEDS: ENOXAPARIN 30 MG/0.3 ML SQ SCH (10:01)
[2022-11-11 11:39] VITALS: O2SAT 94
[2022-11-11 14:30] VITALS: BP 113/50
== END 2022-11-11 13:19 | disposition home or self-care (01) ==
LOC: ER 08:09 → ERHOLD 10:46 → 2ND 21:04
PROVIDERS: ADMIT Internal Medicine Sleep Medicine; ATTEND Hospitalist
DX: N39.0 Urinary tract infection, site not specified (principal); A41.9 Sepsis, unspecified organism; N19 Unspecified kidney failure; R50.9 Fever, unspecified; R05.9 Cough, unspecified; R53.83 Other fatigue; F17.210 Nicotine dependence, cigarettes, uncomplicated; R60.9 Edema, unspecified; E11.9 Type 2 diabetes mellitus without complications; E78.5 Hyperlipidemia, unspecified; I10 Essential (primary) hypertension; G20 Parkinson's disease; F02.80 Dementia in other diseases classified elsewhere, unspecified severity, without behavioral disturbance, psychotic disturbance, mood disturbance, and anxiety; D64.9 Anemia, unspecified; G92.8 Other toxic encephalopathy; Z87.440 Personal history of urinary (tract) infections; Z85.3 Personal history of malignant neoplasm of breast
CPT/HCPCS: 87040 ×2; 87088; 85025 ×3; 81001; 87086; 80048 ×2; 36415 ×2; 82947 ×8; 83605; 84443; 83036; 84439; 80053; 0240U; 71045; 76770; 94640; 96374; 99285; J1815 ×4; J1650 ×2; J7605; J7120 ×4; J7040; G0378